=== PATIENT | female | born 1990 | race Caucasian/White ===

== ENCOUNTER → 2022-12-15 16:49 | Outpatient (CLI) | payer OTHER, MEDICAID, SELFPAY ==
[2022-12-15 17:39] LABS: HEMOLYSIS < 15 (0-50)
[2022-12-15 17:42] LABS: Add Manual Diff / Slide Review NO; Basophils Absolute Auto 100 /uL (0-100); Eosinophils Absolute Auto 200 /uL (0-450); Eosinophils Percent Auto 2.5 % (2-4); Hematocrit 40.4 % (36-46); Hemoglobin 13.5 g/dL (12.0-16.0); Lymphocytes Absolute Auto 2500 /uL (1100-4500); Mean Corpuscular HGB Conc 33.3 % (30-36); Mean Corpuscular Hemoglobin 29.8 PG (26-34); Mean Corpuscular Volume 89.4 fL (80-100); Monocytes Absolute Auto 400 /uL (0-900); Monocytes Percent Auto 6.1 % (3-14); Neutrophils Absolute Auto 3400 /uL (1500-7000); Neutrophils Percent Auto 52.4 % (50-75); Platelet Count 221 X10^3/uL (150-400); Red Blood Cell Count 4.52 X10^6/uL (4.0-5.2); Red Cell Distribution Width 13.3 % (11.6-14.8); White Blood Cell Count 6.5 X10^3/uL (4.5-11.0)
[2022-12-15 17:43] LABS: Alanine Aminotransferase 19 IU/L (<35); Albumin 4.6 g/dL (3.5-5.0); Albumin Globulin Ratio 1.4 (1.0-2.8); Alkaline Phosphatase 52 U/L (38-126); Aspartate Aminotransferase 24 IU/L (14-36); BUN Creatinine Ratio 25.9 (6-22); Bilirubin Total 0.3 mg/dL (0.2-1.3); Blood Urea Nitrogen 14 mg/dL (7-17); Calcium 8.8 mg/dL (8.4-10.2); Carbon Dioxide 27 mmol/L (22-32); Chloride 98 mmol/L (98-107); Estimated Glomerular Filt Rate > 60 mL/min (>60); Globulin 3.2 g/dL (1.7-4.1); Glucose 106 mg/dL (70-100); Potassium 3.4 mmol/L (3.4-5.1); Sodium 139 mmol/L (137-145); Total Protein 7.8 g/dL (6.3-8.2)
[2022-12-15 18:15] LABS: TSH w/ Reflex to FT4 0.71 uIU/mL (0.47-4.68)
[2022-12-15 18:20] LABS: Ferritin 23 ng/mL (6-137)
[2022-12-15 20:20] LABS: Vitamin B12 290 pg/mL (239-931)
== END ==
PROVIDERS: PCP Family Medicine; Referring Provider Family Medicine; Visit Provider Family Medicine
DX: Z00.00 Encounter for general adult medical examination without abnormal findings (principal); D64.9 Anemia, unspecified; F32.A Depression, unspecified; R53.83 Other fatigue
CPT/HCPCS: 36415; 80053; 82607; 82728; 84443; 85025

== ENCOUNTER 2024-03-19 09:45 | Outpatient (RCR) | payer OTHER, MEDICAID, SELFPAY ==
--- NOTE | 2024-01-11 15:40 | PT.OIE ---
Current Diagnoses Scoliosis, unspecified (01/11/24) Dorsalgia, unspecified (01/11/24) Abnormal posture (01/11/24) Weakness (01/11/24) Past Medical History (Last Updated 01/29/23 @ 16:39 by Perez Martinez DO) Depression Visit Care Team Role Provider Type Perez Martinez DO Family Provider Physician Primary Care Provider Specialty: Family Practice Address: [address] [place] [address], [address], [address] Email: [email or web address] Attending Provider Advanced Operations Research Director Referring Provider Specialty: Medical Wound Care Address: [address] [place] [address], [id number] Email: [email or web address] Physical Therapy Initial Evaluation PT-OP-A Visit Information Start: 01/11/24 07:25 Freq: Status: Active Protocol: Document 01/11/24 13:00 NM (Rec: 01/11/24 13:48 NM [id number]) Out-Patient Physical Therapy Visit Information Visit Information Visit Type Initial Evaluation Visit Note 12 visits MAX Visit Start Time 13:00 Visit Stop Time 13:45 Visit Number 1 Evaluation Information Evaluation Date 01/11/24 Precautions Precautions scoliosis PT-OP-B Current Condition Start: 01/11/24 07:25 Freq: Status: Active Protocol: Document 01/11/24 13:00 NM (Rec: 01/11/24 13:48 NM [id number]) Current Condition History of Current Condition Onset Date 1 month ago Current Complaints stiffness, pain History of Current Condition Pt presents with B shoulder (L >R) and back pain (mid- thoracic to lumbar). She believes it's due to sleeping in same position for several days, no other known MAKAYLA. About 1 month ago, pt went to walk in clinic due to pain, which was attributed to scoliosis.She reports that she has multiple curves in spine, hx of wearing back brace but no surgeries. No previous hx of PT or other treatment for scoliosis. 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 Does not participate in any physical activity except walking occasionally Treatment Goals Patient/Caregiver Goals decrease pain PT-OP-C Subjective Start: 01/11/24 07:25 Freq: Status: Active Protocol: Document 01/11/24 13:00 NM (Rec: 01/11/24 13:48 NM [id number]) OP-PT Subjective Patient Comments Patient Comments see hx above for pt report Patient Questionnaires Oswestry Low Back Index Oswestry Score 8/50 OP-PT Pain Assessment Pain Assessment Grid Paper Pain Assessment Grid Completed Yes Location spine Pain Location Details neck >shoulders, low back Intensity 0 Scale Used Numeric (0 - 10) Description Sharp Description- Other chart: 12/29 in scapulae, low back Frequency Frequent Radiating Location to head Pain Aggravating Factors Position,ADL's,Activity, Sitting,Walking,Bending, Lifting Other Pain Aggravating Factors sidelying, leaning/sitting, arm elevation Pain Alleviating Factors Cold,Heat,Rest Home Pain Medication Use Pain Medications Used naproxen prn PT-OP-E Functional Tests Start: 01/11/24 07:25 Freq: Status: Active Protocol: Document 01/11/24 13:00 NM (Rec: 01/11/24 17:29 NM [id number]) Functional Tests Other Forward Trunk Flexion Test Name of Test measured from finger tips to floor Score 7 PT-OP-F Manual Assessment Start: 01/11/24 07:25 Freq: Status: Active Protocol: Document 01/11/24 13:00 NM (Rec: 01/11/24 17:29 NM [id number]) Manual Assessments Soft Tissue Assessment Soft Tissue Mobility Assessment Increased tone along B paraspinals, rhomboids (L>R), suboccipitals, hip flexors (R> L), hamstrings, and R cervical spine paraspinals Joint Mobility Assessment Joint Mobility Assessment No pain with posterior- anterior springing of spinous processes, hypomobile. Scoliosis with R thoracic curve and L lumbar curve. Anteriorly rotated R ASIS. Observable hypermobility at B elbows and knees. PT-OP-G Mobility & Gait Start: 01/11/24 07:25 Freq: Status: Active Protocol: Document 01/11/24 13:00 NM (Rec: 01/11/24 17:29 NM [id number]) OP Gait Assessment Gait Gait Assistance Required: Independent Distance (Feet) 150 Assistive Devices Assistive Device None Comments Gait Comments Increased trunk stiffness, limited rotation, L limp PT-OP-J Posture/Palpation/Skin Start: 01/11/24 07:25 Freq: Status: Active Protocol: Document 01/11/24 13:00 NM (Rec: 01/11/24 13:48 NM [id number]) Posture Evaluation Position Standing T-Spine Posture Fixed Scoliosis on (R) L-Spine Posture Increased Lordosis,Flexible Scoliosis on (L) Shoulder Posture (L) Rounded,(R) Rounded,(L) Forward,(R) Forward Scapula Posture (R) Protracted,(L) Winged,(R) Winged,(R) Tipped Arm Posture (L) Internally Rotated,(R) Internally Rotated Pelvis Posture (R) Rotated Anterior,(R) Iliac Crest Superior Hip Posture (L) Neutral,(R) Neutral Knee Posture (L) Genu Valgus,(R) Genu Valgus Patellar Posture (L) Superior,(R) Superior Ankle/Foot Posture (L) Pronated,(R) Pronated Comments Posture Comments Measurement from lateral scapular border to spine: L 4 cm, R 7 cm Palpation Assessment Location spine Palpation Findings Soft Tissue Tightness, Tenderness Palpation Details Tenderness near T10 spinous process, but does not increase pain with palpation. Soft tissue tightness of B paraspinals from cervical > lumbar. PT-OP-K Range of Motion Start: 01/11/24 07:25 Freq: Status: Active Protocol: Document 01/11/24 13:00 NM (Rec: 01/11/24 17:29 NM [id number]) Cervical Spine Range of Motion Cervical Spine Active Degrees Testing Position Sitting Flexion 60 Extension 60 Rotation Left 65 Rotation Right 60 Lateral Flexion Left 40 Lateral Flexion Right 30 ROM Limitations Soft Tissue Tightness Comments Soft tissue restrictions with L rotation, R lateral flexion Lumbar Spine Range of Motion Lumbar Spine Active Percentage Flexion 60 Extension 100 Rotation Left 3 Rotation Right 3 Lateral Flexion Left 80 Lateral Flexion Right 100 ROM Limitations Soft Tissue Tightness,Pain Comments Pain reproduced with flexion, extension, R lateral flexion Shoulder Goniometric Range of Motion Shoulder Left Flexion 140 Abduction 170 External Rotation at 0 degrees Abduction 65 Internal Rotation 75 Internal Rotation Behind Back (text) T8 Comments ER Apley T4 Right Flexion 145 Abduction 160 External Rotation at 0 degrees Abduction 70 Internal Rotation 80 Internal Rotation Behind Back (text) T10 Comments ER Apley T4 Elbow/Forearm Range of Motion Elbow/Forearm ROM Limitations Comments Hypermobility Hip Goniometric Range of Motion Hip Left Flexion w/Knee Flexed 120 Abduction 20 Internal Rotation 40 External Rotation 35 Comments Hamstring 145 deg Right Flexion w/Knee Flexed 110 Abduction 20 Internal Rotation 45 External Rotation 35 Comments Hamstring 135 deg Hip ROM Limitations Hip ROM Limitations Soft Tissue Tightness,Bony Restriction Comments R ASIS more anterior Knee Goniometric Range of Motion Knee Left Flexion Active (degrees) 145 Hyper-Extension Active 5 Right Flexion Active (degrees) 145 Extension Active (degrees) 0 Ankle and Foot Goniometric Range of Motion Ankle and Foot ROM Limitations Comments Did not formally assess due to time but decreased dorsiflexion BLE PT-OP-L Special Tests Start: 01/11/24 07:25 Freq: Status: Active Protocol: Document 01/11/24 13:00 NM (Rec: 01/11/24 17:29 NM [id number]) Special Tests Lumbar Spine Special Tests Straight Leg Raise Test Results + Comments R Scruggs/Quadrant Test Results + Comments local R>L Distraction Test Results + PT-OP-M Strength Start: 01/11/24 07:25 Freq: Status: Active Protocol: Document 01/11/24 13:00 NM (Rec: 01/11/24 17:29 NM [id number]) Cervical Spine Strength Cervical Spine Manual Muscle Testing Flexion (C1-2) 4+ Good+ Extension 4+ Good+ Rotation Left 4+ Good+ Rotation Right 4+ Good+ Lateral Flexion Left (C3) 4+ Good+ Lateral Flexion Right (C3) 4+ Good+ Trunk Strength Trunk Manual Muscle Testing Flexion 3 Fair Extension 3 Fair Rotation Left 4 Good Rotation Right 4 Good Lateral Flexion Left 4 Good Lateral Flexion Right 4 Good Core Stabilization plank: 14 seconds before low back pain and demos instability Comments Minimal low back pain with R rotation Scapula Strength Scapula Manual Muscle Testing Left Elevation (C4) 4 Good Adduction 4 Good Abduction 4 Good Depression 4 Good Right Elevation (C4) 4 Good Adduction 4 Good Abduction 4 Good Depression 4 Good Shoulder Strength Shoulder Manual Muscle Testing Left Flexion 4 Good Extension 4 Good Abduction (C5) 4 Good Adduction 4 Good External Rotation 4 Good Internal Rotation 4 Good Right Flexion 4 Good Extension 4 Good Abduction (C5) 4 Good Adduction 4 Good External Rotation 4 Good Internal Rotation 4 Good Elbow/Forearm Strength Elbow and Forearm Manual Muscle Testing Left Flexion (C6) 4 Good Extension (C7) 4 Good Right Flexion (C6) 4 Good Extension (C7) 4 Good Hip Strength Hip Manual Muscle Testing Left Flexion (L2) 4- Good- Extension (S1) 4- Good- Abduction 4- Good- Adduction 4- Good- External Rotation 4 Good Internal Rotation 4 Good Right Flexion (L2) 4- Good- Extension (S1) 4- Good- Abduction 4- Good- External Rotation 4 Good Internal Rotation 4 Good Knee Strength Knee Manual Muscle Testing Left Flexion (S2) 4- Good- Extension (L3) 4- Good- Right Flexion (S2) 4- Good- Extension (L3) 4- Good- Ankle/Foot Strength Ankle and Foot Manual Muscle Testing Left Dorsiflexion (L4) 4 Good Plantarflexion (S1) 4 Good Inversion 4 Good Eversion (S1) 4 Good Right Dorsiflexion (L4) 4 Good Plantarflexion (S1) 4 Good Inversion 4 Good Eversion (S1) 4 Good PT-OP-Q Treatments Start: 01/11/24 07:25 Freq: Status: Active Protocol: Document 01/11/24 13:00 NM (Rec: 01/11/24 17:29 NM [id number]) Therapeutic Exercises Sitting Exercises cervical spine stretces Sitting Exercise Name upper trapezius, levator scapula Side bilateral Equipment Used with opposite hand tension for gentle stretch Reps/Minutes 1x30 ea Comments cued for gentle stretch, pain free Other Exercises self soft tissue mobilization Other Exercise Name suboccipital release, rhomboid mobilization Side bilateral Resistance mobilization w/ movement shldr flex/abd for rhomboid Equipment Used racquetball in pillow case Reps/Minutes 5 minute total Comments pain free PT-OP-T Assessment and Plan Start: 01/11/24 07:25 Freq: Status: Active Protocol: Document 01/11/24 13:00 NM (Rec: 01/11/24 17:29 NM [id number]) Physical Therapy Assessment Rehab Potential Rehabilitation Potential Good Evaluation Complexity Number of Personal Factors/Comorbidities 1-2 Number of Body Systems Impaired 1-2 Clinical Presentation at Evaluation Stable Impairments Impairments Activity Tolerance,Functional Activities,Functional Mobility ,Gait,Integument,Pain,Posture, ROM,Sensation,Soft Tissue Mobility,Strength Goals Five Impairment cervical spine Impairment R rotation 60 deg, L rotation 65 deg Short Term Goal (STG) Pt will increase B cervical spine rotation AROM to at least 70 deg in order to improve visual scanning and posture related to paraspinal muscle length STG Duration 6 weeks Tax Analyst Goal (LTG) Pt will increase B cervical spine rotation AROM to at least 75 deg in order to improve visual scanning and posture related to paraspinal muscle length LTG Duration 12 weeks Four Impairment strength Short Term Goal (STG) Pt will increase global BLE strength to at least 4/5 MMT in order to demonstrate improved activity tolerance STG Duration 6 weeks Assisted Goal (LTG) Pt will increase global BLE strength to at least 4+/5 MMT in order to demonstrate improved activity tolerance LTG Duration 12 weeks Three Impairment core stability Impairment plank 14 seconds Short Term Goal (STG) Pt will hold a plank (modified or full) for at least 20 seconds without signs of instability and pain <4/10 in order to demonstrate improved core stability STG Duration 6 weeks Tax Analyst Goal (LTG) Pt will hold a plank (modified or full) for at least 30 seconds without signs of instability and pain <4/10 in order to demonstrate improved core stability LTG Duration 12 weeks Two Impairment activity Impairment not performing HEP or daily exercise Short Term Goal (STG) Pt will report compliance with HEP at least 2-3x/wk in order to maximize progression made during PT sessions STG Duration 6 weeks Tax Analyst Goal (LTG) Pt will report compliance with HEP at least 3x/wk in order to transition into maintenance program upon discharge from PT LTG Duration 12 weeks One Impairment activity, function Impairment Oswestry 8/50 Tax Analyst Goal (LTG) Pt will decrease Oswestry score to <8/50 in order to demonstrate improvements in activity tolerance, pain management, and QOL LTG Duration 12 weeks Assessment Summary Assessment Pt is a 33 y.o. female presenting with cervicothoracolumbar spine pain related to scoliosis. Pt reports pain is most limiting in upper thoracic and lower cervical spine with radiation to B shoulders and occiput. Pt has a R thoracic, L lumbar curve; previously used bracing for posture correction. Pt's pain has decreased over the past month. She demonstrates hypermobility at most joints, but she does have limitations in B cervical spine, shoulder flexion and thoracolumbar spine due to scoliosis. Pt does not participate in daily activity except occasional walks. Her BUE and BLE strength is decreased for her age with limitations primarily in B hips/knees. Additionally , pt's has poor core stabilization and is only able to hold a plank for 14 seconds. PT discussed exam findings with pt and plan of care; pt verbalizes agreement. Pt has limited number of visits, so will decrease in frequency as pt progresses. Initial HEP provided to decrease paraspinal soft tissue restrictions across cervical and midthoracic spine . PT also educated pt briefly on sitting ergonomics for pain reduction and to improve postural alignment along hips/ spine. Pt would benefit from skilled PT for improved postural alignment, strengthening, and mobility in order to increase activity tolerance, decrease pain symptoms, and improve QOL. Physical Therapy Plan Frequency and Duration Frequency of Treatment 1-2x/wk Duration of treatment (weeks) 12 Plan of Care Start Date 01/11/24 Plan of Care End Date 04/04/24 Therapeutic Interventions Therapeutic Interventions Balance Training,Gait Training ,Home Exercise Program,Joint Mobilizations,Manual Therapy, Neuromuscular Re-education, Orthotic/Prosthetic Management ,Patient/Caregiver Education, Self-Care/Home Management, Sensory Integration,Soft Tissue Mobilization,Taping, Therapeutic Activities, Therapeutic Exercises Modalities Cold Pack/Ice Massage,Electric Stimulation,Hot Packs, Vasopneumatic Devices Other Therapeutic Interventions No mechanical traction Next Visit Focus/Plan Next Note Type Treatment Note Next Visit Plan MET to R ASIS, trunk elongation, hip flexor stretch Stretch: hamstring, calf, paraspinals, lats. Strengthen: hip abduction, sit to stand/ squat, scap retractions > rows , postural elongation, TrA with core Manual: scapular mobilizations , retrain scapulohumeral rhythm Provide HEP
--- NOTE | 2024-01-14 15:42 | PT.OTN ---
Current Diagnoses Scoliosis, unspecified (01/14/24) Dorsalgia, unspecified (01/14/24) Abnormal posture (01/14/24) Weakness (01/14/24) Physical Therapy Treatment Note PT-OP-A Visit Information Start: 01/11/24 07:25 Freq: Status: Active Protocol: Document 01/14/24 10:33 NM (Rec: 01/14/24 11:18 NM [id number]) Out-Patient Physical Therapy Visit Information Visit Information Visit Type Treatment Note Visit Note 12 visits MAX Visit Start Time 10:33 Visit Stop Time 11:15 Visit Number 2 Evaluation Information Evaluation Date 01/11/24 PT-OP-B Current Condition Start: 01/11/24 07:25 Freq: Status: Active Protocol: Document 01/11/24 13:00 NM (Rec: 01/11/24 13:48 NM [id number]) Current Condition History of Current Condition Onset Date 1 month ago Current Complaints stiffness, pain History of Current Condition Pt presents with B shoulder (L >R) and back pain (mid- thoracic to lumbar). She believes it's due to sleeping in same position for several days, no other known MAKAYLA. About 1 month ago, pt went to walk in clinic due to pain, which was attributed to scoliosis.She reports that she has multiple curves in spine, hx of wearing back brace but no surgeries. No previous hx of PT or other treatment for scoliosis. 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 Does not participate in any physical activity except walking occasionally Treatment Goals Patient/Caregiver Goals decrease pain PT-OP-C Subjective Start: 01/11/24 07:25 Freq: Status: Active Protocol: Document 01/14/24 10:33 NM (Rec: 01/14/24 11:18 NM [id number]) OP-PT Subjective Patient Comments Patient Comments Pt reports stiffness in shoulders and legs this morning but no pain. PT-OP-E Functional Tests Start: 01/11/24 07:25 Freq: Status: Active Protocol: Document 01/11/24 13:00 NM (Rec: 01/11/24 17:29 NM [id number]) Functional Tests Other Forward Trunk Flexion Test Name of Test measured from finger tips to floor Score 7 PT-OP-F Manual Assessment Start: 01/11/24 07:25 Freq: Status: Active Protocol: Document 01/11/24 13:00 NM (Rec: 01/11/24 17:29 NM [id number]) Manual Assessments Soft Tissue Assessment Soft Tissue Mobility Assessment Increased tone along B paraspinals, rhomboids (L>R), suboccipitals, hip flexors (R> L), hamstrings, and R cervical spine paraspinals Joint Mobility Assessment Joint Mobility Assessment No pain with posterior- anterior springing of spinous processes, hypomobile. Scoliosis with R thoracic curve and L lumbar curve. Anteriorly rotated R ASIS. Observable hypermobility at B elbows and knees. PT-OP-G Mobility & Gait Start: 01/11/24 07:25 Freq: Status: Active Protocol: Document 01/11/24 13:00 NM (Rec: 01/11/24 17:29 NM [id number]) OP Gait Assessment Gait Gait Assistance Required: Independent Distance (Feet) 150 Assistive Devices Assistive Device None Comments Gait Comments Increased trunk stiffness, limited rotation, L limp PT-OP-J Posture/Palpation/Skin Start: 01/11/24 07:25 Freq: Status: Active Protocol: Document 01/11/24 13:00 NM (Rec: 01/11/24 13:48 NM [id number]) Posture Evaluation Position Standing T-Spine Posture Fixed Scoliosis on (R) L-Spine Posture Increased Lordosis,Flexible Scoliosis on (L) Shoulder Posture (L) Rounded,(R) Rounded,(L) Forward,(R) Forward Scapula Posture (R) Protracted,(L) Winged,(R) Winged,(R) Tipped Arm Posture (L) Internally Rotated,(R) Internally Rotated Pelvis Posture (R) Rotated Anterior,(R) Iliac Crest Superior Hip Posture (L) Neutral,(R) Neutral Knee Posture (L) Genu Valgus,(R) Genu Valgus Patellar Posture (L) Superior,(R) Superior Ankle/Foot Posture (L) Pronated,(R) Pronated Comments Posture Comments Measurement from lateral scapular border to spine: L 4 cm, R 7 cm Palpation Assessment Location spine Palpation Findings Soft Tissue Tightness, Tenderness Palpation Details Tenderness near T10 spinous process, but does not increase pain with palpation. Soft tissue tightness of B paraspinals from cervical > lumbar. PT-OP-K Range of Motion Start: 01/11/24 07:25 Freq: Status: Active Protocol: Document 01/11/24 13:00 NM (Rec: 01/11/24 17:29 NM [id number]) Cervical Spine Range of Motion Cervical Spine Active Degrees Testing Position Sitting Flexion 60 Extension 60 Rotation Left 65 Rotation Right 60 Lateral Flexion Left 40 Lateral Flexion Right 30 ROM Limitations Soft Tissue Tightness Comments Soft tissue restrictions with L rotation, R lateral flexion Lumbar Spine Range of Motion Lumbar Spine Active Percentage Flexion 60 Extension 100 Rotation Left 3 Rotation Right 3 Lateral Flexion Left 80 Lateral Flexion Right 100 ROM Limitations Soft Tissue Tightness,Pain Comments Pain reproduced with flexion, extension, R lateral flexion Shoulder Goniometric Range of Motion Shoulder Left Flexion 140 Abduction 170 External Rotation at 0 degrees Abduction 65 Internal Rotation 75 Internal Rotation Behind Back (text) T8 Comments ER Apley T4 Right Flexion 145 Abduction 160 External Rotation at 0 degrees Abduction 70 Internal Rotation 80 Internal Rotation Behind Back (text) T10 Comments ER Apley T4 Elbow/Forearm Range of Motion Elbow/Forearm ROM Limitations Comments Hypermobility Hip Goniometric Range of Motion Hip Left Flexion w/Knee Flexed 120 Abduction 20 Internal Rotation 40 External Rotation 35 Comments Hamstring 145 deg Right Flexion w/Knee Flexed 110 Abduction 20 Internal Rotation 45 External Rotation 35 Comments Hamstring 135 deg Hip ROM Limitations Hip ROM Limitations Soft Tissue Tightness,Bony Restriction Comments R ASIS more anterior Knee Goniometric Range of Motion Knee Left Flexion Active (degrees) 145 Hyper-Extension Active 5 Right Flexion Active (degrees) 145 Extension Active (degrees) 0 Ankle and Foot Goniometric Range of Motion Ankle and Foot ROM Limitations Comments Did not formally assess due to time but decreased dorsiflexion BLE PT-OP-L Special Tests Start: 01/11/24 07:25 Freq: Status: Active Protocol: Document 01/11/24 13:00 NM (Rec: 01/11/24 17:29 NM [id number]) Special Tests Lumbar Spine Special Tests Straight Leg Raise Test Results + Comments R Scruggs/Quadrant Test Results + Comments local R>L Distraction Test Results + PT-OP-M Strength Start: 01/11/24 07:25 Freq: Status: Active Protocol: Document 01/11/24 13:00 NM (Rec: 01/11/24 17:29 NM [id number]) Cervical Spine Strength Cervical Spine Manual Muscle Testing Flexion (C1-2) 4+ Good+ Extension 4+ Good+ Rotation Left 4+ Good+ Rotation Right 4+ Good+ Lateral Flexion Left (C3) 4+ Good+ Lateral Flexion Right (C3) 4+ Good+ Trunk Strength Trunk Manual Muscle Testing Flexion 3 Fair Extension 3 Fair Rotation Left 4 Good Rotation Right 4 Good Lateral Flexion Left 4 Good Lateral Flexion Right 4 Good Core Stabilization plank: 14 seconds before low back pain and demos instability Comments Minimal low back pain with R rotation Scapula Strength Scapula Manual Muscle Testing Left Elevation (C4) 4 Good Adduction 4 Good Abduction 4 Good Depression 4 Good Right Elevation (C4) 4 Good Adduction 4 Good Abduction 4 Good Depression 4 Good Shoulder Strength Shoulder Manual Muscle Testing Left Flexion 4 Good Extension 4 Good Abduction (C5) 4 Good Adduction 4 Good External Rotation 4 Good Internal Rotation 4 Good Right Flexion 4 Good Extension 4 Good Abduction (C5) 4 Good Adduction 4 Good External Rotation 4 Good Internal Rotation 4 Good Elbow/Forearm Strength Elbow and Forearm Manual Muscle Testing Left Flexion (C6) 4 Good Extension (C7) 4 Good Right Flexion (C6) 4 Good Extension (C7) 4 Good Hip Strength Hip Manual Muscle Testing Left Flexion (L2) 4- Good- Extension (S1) 4- Good- Abduction 4- Good- Adduction 4- Good- External Rotation 4 Good Internal Rotation 4 Good Right Flexion (L2) 4- Good- Extension (S1) 4- Good- Abduction 4- Good- External Rotation 4 Good Internal Rotation 4 Good Knee Strength Knee Manual Muscle Testing Left Flexion (S2) 4- Good- Extension (L3) 4- Good- Right Flexion (S2) 4- Good- Extension (L3) 4- Good- Ankle/Foot Strength Ankle and Foot Manual Muscle Testing Left Dorsiflexion (L4) 4 Good Plantarflexion (S1) 4 Good Inversion 4 Good Eversion (S1) 4 Good Right Dorsiflexion (L4) 4 Good Plantarflexion (S1) 4 Good Inversion 4 Good Eversion (S1) 4 Good PT-OP-Q Treatments Start: 01/11/24 07:25 Freq: Status: Active Protocol: Document 01/14/24 10:33 NM (Rec: 01/14/24 11:18 NM [id number]) Therapeutic Exercises Supine Exercises TrA Activation Supine Exercise Name 1. breathing, 2.BKFO, 3. bridge Side bilateral Reps/Minutes 1. 1x10 with 3 hold, 2. 1x10 ea, 3. 2x8 Comments cued Draw bellybutton up/in, neutral spine with bridge; pain free posture elongation Supine Exercise Name arms overhead with breathing Side bilateral Equipment Used breathing for rib expansion Reps/Minutes 2', 1x5 with brief pause at end range Comments pain free but reports stretch at B lats Sitting Exercises scapular retractions Side bilateral Equipment Used PT facilitate even shoulders Reps/Minutes 1x10 with 3 hold Comments pain free, R more protracted, L wings cervical spine stretces Sitting Exercise Name upper trapezius, levator scapula Side bilateral Equipment Used with opposite hand tension for gentle stretch Reps/Minutes 2x30 ea Comments cued for gentle stretch, pain free Other Exercises 1/2 kneel hip flexor stretch Side bilateral Equipment Used mat on floor Reps/Minutes 1x60 Comments pain free, with ppt self soft tissue mobilization Other Exercise Name rhomboid mobilization Side bilateral Resistance mobilization w/ movement shldr flex/abd for rhomboid Equipment Used racquetball in pillow case Reps/Minutes 2' total Comments pain free Manual Therapy Treatment Soft Tissue Mobilization mid-thoracic spine Body Location B rhomboids Mobilization Type Rolling,Sustained Pressure Intensity/Depth Superficial Body Position Sidelying Comments To reduce soft tissue limitations along rhomboids, R >L, with minimal tenderness. Joint Mobilizations Rib Grade III Body Position Sitting Comments L more anterior, performed with breathing 1. mobilization: ER/elevation of ribs during breathing with P-A mobilization across ribs 4 -8, lengthening of spine, pain free but restricted, 10x5 breaths 2. mobilization into SB L with posteroinferior force, pain free but restricted, 10x5 breaths 3. contract-relax: trunk shift L, rotation with P-A mobilization at ribs on R side , 8x5 scapulothoracic Joint R shoulder Direction elev/dep, rotation upwd/dwd Grade III Body Position Sidelying Reps/Duration 1x10 ea Comments R more protracted, anterior and elevated Pain free, but decreased mobility with scapular mobilizations, performed with forward flexion and abduction in sidelying Manual Techniques Muscle Energy Technique Reps/Duration 5x10, 25% isometric force Comments R ASIS anterior: performed with dowel, R hip ext, L hip flex Supine to long sit: R anterior long> short. Still slightly anterior post, but reduced after hamstring activation Self-Care/Home Management Treatment Education Patient Education Body Mechanics,Home Exercise Program,Joint Protection, Posture Other Education 10 minutes- Education and hand outs provided regarding ergonomic sitting posture, sleeping, and desk stretches. HEP: hip flexor stretch, scapular retractions PT-OP-T Assessment and Plan Start: 01/11/24 07:25 Freq: Status: Active Protocol: Document 01/14/24 10:33 NM (Rec: 01/14/24 11:18 NM [id number]) Physical Therapy Assessment Goals Five Impairment cervical spine Impairment R rotation 60 deg, L rotation 65 deg Short Term Goal (STG) Pt will increase B cervical spine rotation AROM to at least 70 deg in order to improve visual scanning and posture related to paraspinal muscle length STG Duration 6 weeks Assisted Living Nursing Director Goal (LTG) Pt will increase B cervical spine rotation AROM to at least 75 deg in order to improve visual scanning and posture related to paraspinal muscle length LTG Duration 12 weeks Four Impairment strength Short Term Goal (STG) Pt will increase global BLE strength to at least 4/5 MMT in order to demonstrate improved activity tolerance STG Duration 6 weeks Assisted Living Nursing Director Goal (LTG) Pt will increase global BLE strength to at least 4+/5 MMT in order to demonstrate improved activity tolerance LTG Duration 12 weeks Three Impairment core stability Impairment plank 14 seconds Short Term Goal (STG) Pt will hold a plank (modified or full) for at least 20 seconds without signs of instability and pain <4/10 in order to demonstrate improved core stability STG Duration 6 weeks Assisted Living Nursing Director Goal (LTG) Pt will hold a plank (modified or full) for at least 30 seconds without signs of instability and pain <4/10 in order to demonstrate improved core stability LTG Duration 12 weeks Two Impairment activity Impairment not performing HEP or daily exercise Short Term Goal (STG) Pt will report compliance with HEP at least 2-3x/wk in order to maximize progression made during PT sessions STG Duration 6 weeks Assisted Living Nursing Director Goal (LTG) Pt will report compliance with HEP at least 3x/wk in order to transition into maintenance program upon discharge from PT LTG Duration 12 weeks One Impairment activity, function Impairment Oswestry 8/50 Assisted Living Nursing Director Goal (LTG) Pt will decrease Oswestry score to <8/50 in order to demonstrate improvements in activity tolerance, pain management, and QOL LTG Duration 12 weeks Assessment Summary Assessment Pt demos R pelvic shift and demos R hip flexor tightness. Initiated gentle spinal elongation and cervical paraspinal stretching to assist with cervical spine muscle elongation. Cued for breathing to emphasize rib expansion, elongation, and trunk mobility. Initiated gentle core activation/ stabilization and lumbar/glute strengthening with breathing. Manual treatment to limit R hip flexor tightness, improve trunk and rib positioning, and improve scapular mobility. Mobility limited by curvature of spine. 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 Since it has been several years since pt had xray, PT and pt discussed benefit of getting follow up imaging to determine if curve has progressed. Pt would benefit from skilled PT to improve posture, decrease pain symptoms, and improve trunk/ BLE/arm strength. Physical Therapy Plan Frequency and Duration Frequency of Treatment 1-2x/wk Duration of treatment (weeks) 12 Plan of Care Start Date 01/11/24 Plan of Care End Date 04/04/24 Therapeutic Interventions Therapeutic Interventions Balance Training,Gait Training ,Home Exercise Program,Joint Mobilizations,Manual Therapy, Neuromuscular Re-education, Orthotic/Prosthetic Management ,Patient/Caregiver Education, Self-Care/Home Management, Sensory Integration,Soft Tissue Mobilization,Taping, Therapeutic Activities, Therapeutic Exercises Modalities Cold Pack/Ice Massage,Electric Stimulation,Hot Packs, Vasopneumatic Devices Other Therapeutic Interventions No mechanical traction Next Visit Focus/Plan Next Note Type Treatment Note Next Visit Plan Trunk elongation, hip flexor stretch, paraspinal, trunk shift, breathing, trial: open book, periscapular mobility and strength Manual: STM, rib mobilizations /trunk mobilizations to open ribs/midthoracic, scapular mechanics, scapular MWM
--- NOTE | 2024-01-24 12:07 | PT.OTN ---
Current Diagnoses Scoliosis, unspecified (01/24/24) Dorsalgia, unspecified (01/24/24) Abnormal posture (01/24/24) Weakness (01/24/24) Physical Therapy Treatment Note PT-OP-A Visit Information Start: 01/11/24 07:25 Freq: Status: Active Protocol: Document 01/24/24 11:17 NM (Rec: 01/24/24 12:07 NM [id number]) Out-Patient Physical Therapy Visit Information Visit Information Visit Type Treatment Note Visit Note 12 visits MAX Visit Start Time 11:17 Visit Stop Time 12:00 Visit Number 4 Evaluation Information Evaluation Date 01/11/24 Precautions Precautions scoliosis PT-OP-B Current Condition Start: 01/11/24 07:25 Freq: Status: Active Protocol: Document 01/11/24 13:00 NM (Rec: 01/11/24 13:48 NM [id number]) Current Condition History of Current Condition Onset Date 1 month ago Current Complaints stiffness, pain History of Current Condition Pt presents with B shoulder (L >R) and back pain (mid- thoracic to lumbar). She believes it's due to sleeping in same position for several days, no other known MAKAYLA. About 1 month ago, pt went to walk in clinic due to pain, which was attributed to scoliosis.She reports that she has multiple curves in spine, hx of wearing back brace but no surgeries. No previous hx of PT or other treatment for scoliosis. 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 Does not participate in any physical activity except walking occasionally Treatment Goals Patient/Caregiver Goals decrease pain PT-OP-C Subjective Start: 01/11/24 07:25 Freq: Status: Active Protocol: Document 01/24/24 11:17 NM (Rec: 01/24/24 12:07 NM [id number]) OP-PT Subjective Patient Comments Patient Comments Pt reports no pain or discomfort after last session. Reports HEP 1x/day, no difficulty with HEP. PT-OP-E Functional Tests Start: 01/11/24 07:25 Freq: Status: Active Protocol: Document 01/11/24 13:00 NM (Rec: 01/11/24 17:29 NM [id number]) Functional Tests Other Forward Trunk Flexion Test Name of Test measured from finger tips to floor Score 7 PT-OP-F Manual Assessment Start: 01/11/24 07:25 Freq: Status: Active Protocol: Document 01/11/24 13:00 NM (Rec: 01/11/24 17:29 NM [id number]) Manual Assessments Soft Tissue Assessment Soft Tissue Mobility Assessment Increased tone along B paraspinals, rhomboids (L>R), suboccipitals, hip flexors (R> L), hamstrings, and R cervical spine paraspinals Joint Mobility Assessment Joint Mobility Assessment No pain with posterior- anterior springing of spinous processes, hypomobile. Scoliosis with R thoracic curve and L lumbar curve. Anteriorly rotated R ASIS. Observable hypermobility at B elbows and knees. PT-OP-G Mobility & Gait Start: 01/11/24 07:25 Freq: Status: Active Protocol: Document 01/11/24 13:00 NM (Rec: 01/11/24 17:29 NM [id number]) OP Gait Assessment Gait Gait Assistance Required: Independent Distance (Feet) 150 Assistive Devices Assistive Device None Comments Gait Comments Increased trunk stiffness, limited rotation, L limp PT-OP-J Posture/Palpation/Skin Start: 01/11/24 07:25 Freq: Status: Active Protocol: Document 01/11/24 13:00 NM (Rec: 01/11/24 13:48 NM [id number]) Posture Evaluation Position Standing T-Spine Posture Fixed Scoliosis on (R) L-Spine Posture Increased Lordosis,Flexible Scoliosis on (L) Shoulder Posture (L) Rounded,(R) Rounded,(L) Forward,(R) Forward Scapula Posture (R) Protracted,(L) Winged,(R) Winged,(R) Tipped Arm Posture (L) Internally Rotated,(R) Internally Rotated Pelvis Posture (R) Rotated Anterior,(R) Iliac Crest Superior Hip Posture (L) Neutral,(R) Neutral Knee Posture (L) Genu Valgus,(R) Genu Valgus Patellar Posture (L) Superior,(R) Superior Ankle/Foot Posture (L) Pronated,(R) Pronated Comments Posture Comments Measurement from lateral scapular border to spine: L 4 cm, R 7 cm Palpation Assessment Location spine Palpation Findings Soft Tissue Tightness, Tenderness Palpation Details Tenderness near T10 spinous process, but does not increase pain with palpation. Soft tissue tightness of B paraspinals from cervical > lumbar. PT-OP-K Range of Motion Start: 01/11/24 07:25 Freq: Status: Active Protocol: Document 01/11/24 13:00 NM (Rec: 01/11/24 17:29 NM [id number]) Cervical Spine Range of Motion Cervical Spine Active Degrees Testing Position Sitting Flexion 60 Extension 60 Rotation Left 65 Rotation Right 60 Lateral Flexion Left 40 Lateral Flexion Right 30 ROM Limitations Soft Tissue Tightness Comments Soft tissue restrictions with L rotation, R lateral flexion Lumbar Spine Range of Motion Lumbar Spine Active Percentage Flexion 60 Extension 100 Rotation Left 3 Rotation Right 3 Lateral Flexion Left 80 Lateral Flexion Right 100 ROM Limitations Soft Tissue Tightness,Pain Comments Pain reproduced with flexion, extension, R lateral flexion Shoulder Goniometric Range of Motion Shoulder Left Flexion 140 Abduction 170 External Rotation at 0 degrees Abduction 65 Internal Rotation 75 Internal Rotation Behind Back (text) T8 Comments ER Apley T4 Right Flexion 145 Abduction 160 External Rotation at 0 degrees Abduction 70 Internal Rotation 80 Internal Rotation Behind Back (text) T10 Comments ER Apley T4 Elbow/Forearm Range of Motion Elbow/Forearm ROM Limitations Comments Hypermobility Hip Goniometric Range of Motion Hip Left Flexion w/Knee Flexed 120 Abduction 20 Internal Rotation 40 External Rotation 35 Comments Hamstring 145 deg Right Flexion w/Knee Flexed 110 Abduction 20 Internal Rotation 45 External Rotation 35 Comments Hamstring 135 deg Hip ROM Limitations Hip ROM Limitations Soft Tissue Tightness,Bony Restriction Comments R ASIS more anterior Knee Goniometric Range of Motion Knee Left Flexion Active (degrees) 145 Hyper-Extension Active 5 Right Flexion Active (degrees) 145 Extension Active (degrees) 0 Ankle and Foot Goniometric Range of Motion Ankle and Foot ROM Limitations Comments Did not formally assess due to time but decreased dorsiflexion BLE PT-OP-L Special Tests Start: 01/11/24 07:25 Freq: Status: Active Protocol: Document 01/11/24 13:00 NM (Rec: 01/11/24 17:29 NM [id number]) Special Tests Lumbar Spine Special Tests Straight Leg Raise Test Results + Comments R Scruggs/Quadrant Test Results + Comments local R>L Distraction Test Results + PT-OP-M Strength Start: 01/11/24 07:25 Freq: Status: Active Protocol: Document 01/11/24 13:00 NM (Rec: 01/11/24 17:29 NM [id number]) Cervical Spine Strength Cervical Spine Manual Muscle Testing Flexion (C1-2) 4+ Good+ Extension 4+ Good+ Rotation Left 4+ Good+ Rotation Right 4+ Good+ Lateral Flexion Left (C3) 4+ Good+ Lateral Flexion Right (C3) 4+ Good+ Trunk Strength Trunk Manual Muscle Testing Flexion 3 Fair Extension 3 Fair Rotation Left 4 Good Rotation Right 4 Good Lateral Flexion Left 4 Good Lateral Flexion Right 4 Good Core Stabilization plank: 14 seconds before low back pain and demos instability Comments Minimal low back pain with R rotation Scapula Strength Scapula Manual Muscle Testing Left Elevation (C4) 4 Good Adduction 4 Good Abduction 4 Good Depression 4 Good Right Elevation (C4) 4 Good Adduction 4 Good Abduction 4 Good Depression 4 Good Shoulder Strength Shoulder Manual Muscle Testing Left Flexion 4 Good Extension 4 Good Abduction (C5) 4 Good Adduction 4 Good External Rotation 4 Good Internal Rotation 4 Good Right Flexion 4 Good Extension 4 Good Abduction (C5) 4 Good Adduction 4 Good External Rotation 4 Good Internal Rotation 4 Good Elbow/Forearm Strength Elbow and Forearm Manual Muscle Testing Left Flexion (C6) 4 Good Extension (C7) 4 Good Right Flexion (C6) 4 Good Extension (C7) 4 Good Hip Strength Hip Manual Muscle Testing Left Flexion (L2) 4- Good- Extension (S1) 4- Good- Abduction 4- Good- Adduction 4- Good- External Rotation 4 Good Internal Rotation 4 Good Right Flexion (L2) 4- Good- Extension (S1) 4- Good- Abduction 4- Good- External Rotation 4 Good Internal Rotation 4 Good Knee Strength Knee Manual Muscle Testing Left Flexion (S2) 4- Good- Extension (L3) 4- Good- Right Flexion (S2) 4- Good- Extension (L3) 4- Good- Ankle/Foot Strength Ankle and Foot Manual Muscle Testing Left Dorsiflexion (L4) 4 Good Plantarflexion (S1) 4 Good Inversion 4 Good Eversion (S1) 4 Good Right Dorsiflexion (L4) 4 Good Plantarflexion (S1) 4 Good Inversion 4 Good Eversion (S1) 4 Good PT-OP-Q Treatments Start: 01/11/24 07:25 Freq: Status: Active Protocol: Document 01/24/24 11:17 NM (Rec: 01/24/24 12:07 NM [id number]) Therapeutic Exercises Supine Exercises TrA Activation Supine Exercise Name 1. breathing, 2. bridge with hip abd Side bilateral Equipment Used tactile cue with lvl 1 band for breaths for rib exp, TrA activation Reps/Minutes 1. 1x10 with 3 hold, 2. 2x10 (reports band really helps with abd) Comments cued Draw bellybutton up/in, elongation of spine Prone Exercises ITWY Prone Exercise Name for periscapular strengthening Side bilateral Equipment Used large green sb, mat on floor Reps/Minutes 1x12 ea AROM, 1x10 with 1# wt Comments PT tactile cue for scap control initially, better w/ reps Sidelying Exercises open book stretch Sidelying Exercise Name HEP review Side bilateral Equipment Used w/ breathwork Reps/Minutes 1x10 ea side Comments cued for knee flexion; good breathwork Sitting Exercises cervical spine stretces Sitting Exercise Name upper trapezius, levator scapula Side bilateral Equipment Used w and wo opposite hand tension for gentle stretch Reps/Minutes 1x8 breath cycles ea Comments cued for gentle stretch, pain free, scap setting, tall sitting posture Standing Exercises pallof press Standing Exercise Name trialed in PT Side bilateral Resistance lvl 1 tb (both bands) Reps/Minutes 1x15 ea Comments progress next session; cued no rotation of trunk, core stability Other Exercises 1/2 kneel hip flexor stretch Side bilateral Equipment Used mat on floor Reps/Minutes 1x60 ea Comments pain free, with ppt Manual Therapy Treatment Soft Tissue Mobilization mid-thoracic spine Body Location B rhomboids, periscapulars, pec Mobilization Type Rolling,Sustained Pressure Intensity/Depth Superficial Body Position Sidelying Comments No tenderness today along B rhomboids or periscapular muscle, min tenderness at pec. Joint Mobilizations scapulothoracic Joint R shoulder Direction elev/dep, rotation upwd/dwd, protract/retract Grade III Body Position Sidelying Reps/Duration 1x10 ea Comments R more protracted, anterior and elevated Improved mobility and control of B scapulae but continues to have deficits i mobility due to posture. PROM >AAROM with functional movements, pain free Self-Care/Home Management Treatment Education Patient Education Home Exercise Program Other Education HEP: prone ITWY on new zealander ball with 1-2# db/soup can PT-OP-T Assessment and Plan Start: 01/11/24 07:25 Freq: Status: Active Protocol: Document 01/24/24 11:17 NM (Rec: 01/24/24 12:07 NM [id number]) Physical Therapy Assessment Goals Five Impairment cervical spine Impairment R rotation 60 deg, L rotation 65 deg Short Term Goal (STG) Pt will increase B cervical spine rotation AROM to at least 70 deg in order to improve visual scanning and posture related to paraspinal muscle length STG Duration 6 weeks Alf Goal (LTG) Pt will increase B cervical spine rotation AROM to at least 75 deg in order to improve visual scanning and posture related to paraspinal muscle length LTG Duration 12 weeks Four Impairment strength Short Term Goal (STG) Pt will increase global BLE strength to at least 4/5 MMT in order to demonstrate improved activity tolerance STG Duration 6 weeks Alf Goal (LTG) Pt will increase global BLE strength to at least 4+/5 MMT in order to demonstrate improved activity tolerance LTG Duration 12 weeks Three Impairment core stability Impairment plank 14 seconds Short Term Goal (STG) Pt will hold a plank (modified or full) for at least 20 seconds without signs of instability and pain <4/10 in order to demonstrate improved core stability STG Duration 6 weeks Alf Goal (LTG) Pt will hold a plank (modified or full) for at least 30 seconds without signs of instability and pain <4/10 in order to demonstrate improved core stability LTG Duration 12 weeks Two Impairment activity Impairment not performing HEP or daily exercise Short Term Goal (STG) Pt will report compliance with HEP at least 2-3x/wk in order to maximize progression made during PT sessions STG Duration 6 weeks Alf Goal (LTG) Pt will report compliance with HEP at least 3x/wk in order to transition into maintenance program upon discharge from PT LTG Duration 12 weeks One Impairment activity, function Impairment Oswestry 8/50 [employer] 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 Manual treatment to improve scapular mobility and facilitate control of B scapulae during functional UE mobility. Added level 1 band to bridges (and HEP) for increased hip abductor activation and to promote trunk/pelvic alignment. Initiated periscapular strengthening on a new zealander ball to improve scapular control; added 1#, which pt able to demonstrate good stability. Trialed pallof press for upright core stabilization and trunk elongation; requires cues to decrease trunk rotation. Pt would benefit from skilled PT for progressive periscapular strengthening, spinal stabilization and core/BLE strengthening in order to improve activity tolerance and QOL. Physical Therapy Plan Frequency and Duration Frequency of Treatment 1-2x/wk Duration of treatment (weeks) 12 Plan of Care Start Date 01/11/24 Plan of Care End Date 04/04/24 Therapeutic Interventions Therapeutic Interventions Balance Training,Gait Training ,Home Exercise Program,Joint Mobilizations,Manual Therapy, Neuromuscular Re-education, Orthotic/Prosthetic Management ,Patient/Caregiver Education, Self-Care/Home Management, Sensory Integration,Soft Tissue Mobilization,Taping, Therapeutic Activities, Therapeutic Exercises Modalities Cold Pack/Ice Massage,Electric Stimulation,Hot Packs, Vasopneumatic Devices Other Therapeutic Interventions No mechanical traction Next Visit Focus/Plan Next Note Type Treatment Note Next Visit Plan Next session: review prone IYTW, rows, shoulder ext, 1/2 kneel open book, ER+flex, Y lift off, pallof pres (add Resistance), squat with band/ hip hinge Trunk elongation, hip flexor stretch, paraspinal, trunk shift, breathing, trial: open book, periscapular mobility and strength Manual: STM, rib mobilizations /trunk mobilizations to open ribs/midthoracic, scapular mechanics, scapular MWM
--- NOTE | 2024-01-30 15:20 | PT.OTN ---
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 She believes it's due to sleeping in same position for several days, no other known MAKAYLA. About 1 month ago, pt went to walk in clinic due to pain, which was attributed to scoliosis.She reports that she has multiple curves in spine, hx of wearing back brace but no surgeries. No previous hx of PT or other treatment for scoliosis. 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 Does not participate in any physical activity except walking occasionally Treatment Goals Patient/Caregiver Goals decrease pain PT-OP-C Subjective Start: 01/11/24 07:25 Freq: Status: Active Protocol: Document 01/30/24 14:36 NBM (Rec: 01/30/24 15:19 NBM [id number]) OP-PT Subjective Patient Comments Patient Comments Maddie reports no new changes and no pain. She wants to review using the weights with the ball. She's using soup cans. PT-OP-E Functional Tests Start: 01/11/24 07:25 Freq: Status: Active Protocol: Document 01/11/24 13:00 NM (Rec: 01/11/24 17:29 NM [id number]) Functional Tests Other Forward Trunk Flexion Test Name of Test measured from finger tips to floor Score 7 PT-OP-F Manual Assessment Start: 01/11/24 07:25 Freq: Status: Active Protocol: Document 01/11/24 13:00 NM (Rec: 01/11/24 17:29 NM [id number]) Manual Assessments Soft Tissue Assessment Soft Tissue Mobility Assessment Increased tone along B paraspinals, rhomboids (L>R), suboccipitals, hip flexors (R> L), hamstrings, and R cervical spine paraspinals Joint Mobility Assessment Joint Mobility Assessment No pain with posterior- anterior springing of spinous processes, hypomobile. Scoliosis with R thoracic curve and L lumbar curve. Anteriorly rotated R ASIS. Observable hypermobility at B elbows and knees. PT-OP-G Mobility & Gait Start: 01/11/24 07:25 Freq: Status: Active Protocol: Document 01/11/24 13:00 NM (Rec: 01/11/24 17:29 NM [id number]) OP Gait Assessment Gait Gait Assistance Required: Independent Distance (Feet) 150 Assistive Devices Assistive Device None Comments Gait Comments Increased trunk stiffness, limited rotation, L limp PT-OP-J Posture/Palpation/Skin Start: 01/11/24 07:25 Freq: Status: Active Protocol: Document 01/11/24 13:00 NM (Rec: 01/11/24 13:48 NM [id number]) Posture Evaluation Position Standing T-Spine Posture Fixed Scoliosis on (R) L-Spine Posture Increased Lordosis,Flexible Scoliosis on (L) Shoulder Posture (L) Rounded,(R) Rounded,(L) Forward,(R) Forward Scapula Posture (R) Protracted,(L) Winged,(R) Winged,(R) Tipped Arm Posture (L) Internally Rotated,(R) Internally Rotated Pelvis Posture (R) Rotated Anterior,(R) Iliac Crest Superior Hip Posture (L) Neutral,(R) Neutral Knee Posture (L) Genu Valgus,(R) Genu Valgus Patellar Posture (L) Superior,(R) Superior Ankle/Foot Posture (L) Pronated,(R) Pronated Comments Posture Comments Measurement from lateral scapular border to spine: L 4 cm, R 7 cm Palpation Assessment Location spine Palpation Findings Soft Tissue Tightness, Tenderness Palpation Details Tenderness near T10 spinous process, but does not increase pain with palpation. Soft tissue tightness of B paraspinals from cervical > lumbar. PT-OP-K Range of Motion Start: 01/11/24 07:25 Freq: Status: Active Protocol: Document 01/11/24 13:00 NM (Rec: 01/11/24 17:29 NM [id number]) Cervical Spine Range of Motion Cervical Spine Active Degrees Testing Position Sitting Flexion 60 Extension 60 Rotation Left 65 Rotation Right 60 Lateral Flexion Left 40 Lateral Flexion Right 30 ROM Limitations Soft Tissue Tightness Comments Soft tissue restrictions with L rotation, R lateral flexion Lumbar Spine Range of Motion Lumbar Spine Active Percentage Flexion 60 Extension 100 Rotation Left 3 Rotation Right 3 Lateral Flexion Left 80 Lateral Flexion Right 100 ROM Limitations Soft Tissue Tightness,Pain Comments Pain reproduced with flexion, extension, R lateral flexion Shoulder Goniometric Range of Motion Shoulder Left Flexion 140 Abduction 170 External Rotation at 0 degrees Abduction 65 Internal Rotation 75 Internal Rotation Behind Back (text) T8 Comments ER Apley T4 Right Flexion 145 Abduction 160 External Rotation at 0 degrees Abduction 70 Internal Rotation 80 Internal Rotation Behind Back (text) T10 Comments ER Apley T4 Elbow/Forearm Range of Motion Elbow/Forearm ROM Limitations Comments Hypermobility Hip Goniometric Range of Motion Hip Left Flexion w/Knee Flexed 120 Abduction 20 Internal Rotation 40 External Rotation 35 Comments Hamstring 145 deg Right Flexion w/Knee Flexed 110 Abduction 20 Internal Rotation 45 External Rotation 35 Comments Hamstring 135 deg Hip ROM Limitations Hip ROM Limitations Soft Tissue Tightness,Bony Restriction Comments R ASIS more anterior Knee Goniometric Range of Motion Knee Left Flexion Active (degrees) 145 Hyper-Extension Active 5 Right Flexion Active (degrees) 145 Extension Active (degrees) 0 Ankle and Foot Goniometric Range of Motion Ankle and Foot ROM Limitations Comments Did not formally assess due to time but decreased dorsiflexion BLE PT-OP-L Special Tests Start: 01/11/24 07:25 Freq: Status: Active Protocol: Document 01/11/24 13:00 NM (Rec: 01/11/24 17:29 NM [id number]) Special Tests Lumbar Spine Special Tests Straight Leg Raise Test Results + Comments R Scruggs/Quadrant Test Results + Comments local R>L Distraction Test Results + PT-OP-M Strength Start: 01/11/24 07:25 Freq: Status: Active Protocol: Document 01/11/24 13:00 NM (Rec: 01/11/24 17:29 NM [id number]) Cervical Spine Strength Cervical Spine Manual Muscle Testing Flexion (C1-2) 4+ Good+ Extension 4+ Good+ Rotation Left 4+ Good+ Rotation Right 4+ Good+ Lateral Flexion Left (C3) 4+ Good+ Lateral Flexion Right (C3) 4+ Good+ Trunk Strength Trunk Manual Muscle Testing Flexion 3 Fair Extension 3 Fair Rotation Left 4 Good Rotation Right 4 Good Lateral Flexion Left 4 Good Lateral Flexion Right 4 Good Core Stabilization plank: 14 seconds before low back pain and demos instability Comments Minimal low back pain with R rotation Scapula Strength Scapula Manual Muscle Testing Left Elevation (C4) 4 Good Adduction 4 Good Abduction 4 Good Depression 4 Good Right Elevation (C4) 4 Good Adduction 4 Good Abduction 4 Good Depression 4 Good Shoulder Strength Shoulder Manual Muscle Testing Left Flexion 4 Good Extension 4 Good Abduction (C5) 4 Good Adduction 4 Good External Rotation 4 Good Internal Rotation 4 Good Right Flexion 4 Good Extension 4 Good Abduction (C5) 4 Good Adduction 4 Good External Rotation 4 Good Internal Rotation 4 Good Elbow/Forearm Strength Elbow and Forearm Manual Muscle Testing Left Flexion (C6) 4 Good Extension (C7) 4 Good Right Flexion (C6) 4 Good Extension (C7) 4 Good Hip Strength Hip Manual Muscle Testing Left Flexion (L2) 4- Good- Extension (S1) 4- Good- Abduction 4- Good- Adduction 4- Good- External Rotation 4 Good Internal Rotation 4 Good Right Flexion (L2) 4- Good- Extension (S1) 4- Good- Abduction 4- Good- External Rotation 4 Good Internal Rotation 4 Good Knee Strength Knee Manual Muscle Testing Left Flexion (S2) 4- Good- Extension (L3) 4- Good- Right Flexion (S2) 4- Good- Extension (L3) 4- Good- Ankle/Foot Strength Ankle and Foot Manual Muscle Testing Left Dorsiflexion (L4) 4 Good Plantarflexion (S1) 4 Good Inversion 4 Good Eversion (S1) 4 Good Right Dorsiflexion (L4) 4 Good Plantarflexion (S1) 4 Good Inversion 4 Good Eversion (S1) 4 Good PT-OP-Q Treatments Start: 01/11/24 07:25 Freq: Status: Active Protocol: Document 01/30/24 14:36 NBM (Rec: 01/30/24 15:19 NB [id number]) Therapeutic Exercises Supine Exercises TrA Activation Supine Exercise Name 1. breathing, 2. bridge with hip abd Side bilateral Equipment Used tactile cue with lvl 1 band above knees, TrA activation Reps/Minutes 1. 1x10 with 3 hold, 2. 2x10 (reports band really helps with abd) Comments cued Draw bellybutton up/in, elongation of spine Prone Exercises ITWY Prone Exercise Name for periscapular strengthening Side bilateral Equipment Used large green sb, mat on floor Reps/Minutes 1x10 with 1# wt Comments tactile cue for scap control and chin tuck initially, better w/ reps Sidelying Exercises open book stretch Sidelying Exercise Name HEP review Side bilateral Equipment Used w/ breathwork Reps/Minutes 1x10 ea side, x10 x2 breath cycle hold Comments cued for knee flexion, neutral c-sp; good breathwork Sitting Exercises scapular retractions Sitting Exercise Name HEP review Side bilateral Equipment Used seated today on 65cm green physioball Reps/Minutes 1x10 w 2 breathcycle hold Comments pain free, R more protracted, L wings, cues for UT overactivation Standing Exercises pallof press Side bilateral Resistance lvl 1 tb (both bands) Reps/Minutes x5 breath hold, 1x8 Paloff punch ea Comments good challenge, cued breath, no rotation of trunk, core stability Other Exercises 1/2 kneel hip flexor stretch Side bilateral Equipment Used mat on floor Reps/Minutes 1x60 ea, x30s ea todd w/ arm overhead Comments pain free, with ppt PT-OP-T Assessment and Plan Start: 01/11/24 07:25 Freq: Status: Active Protocol: Document 01/30/24 14:36 [facility] (Rec: 01/30/24 15:19 [facility] [id number]) Physical Therapy Assessment Goals Five Impairment cervical spine Impairment R rotation 60 deg, L rotation 65 deg Short Term Goal (STG) Pt will increase B cervical spine rotation AROM to at least 70 deg in order to improve visual scanning and posture related to paraspinal muscle length STG Duration 6 weeks Surg Physician Asst Goal (LTG) Pt will increase B cervical spine rotation AROM to at least 75 deg in order to improve visual scanning and posture related to paraspinal muscle length LTG Duration 12 weeks Four Impairment strength Short Term Goal (STG) Pt will increase global BLE strength to at least 4/5 MMT in order to demonstrate improved activity tolerance STG Duration 6 weeks Senior Living Goal (LTG) Pt will increase global BLE strength to at least 4+/5 MMT in order to demonstrate improved activity tolerance LTG Duration 12 weeks Three Impairment core stability Impairment plank 14 seconds Short Term Goal (STG) Pt will hold a plank (modified or full) for at least 20 seconds without signs of instability and pain <4/10 in order to demonstrate improved core stability STG Duration 6 weeks Surg Physician Asst Goal (LTG) Pt will hold a plank (modified or full) for at least 30 seconds without signs of instability and pain <4/10 in order to demonstrate improved core stability LTG Duration 12 weeks Two Impairment activity Impairment not performing HEP or daily exercise Short Term Goal (STG) Pt will report compliance with HEP at least 2-3x/wk in order to maximize progression made during PT sessions STG Duration 6 weeks Surg Physician Asst Goal (LTG) Pt will report compliance with HEP at least 3x/wk in order to transition into maintenance program upon discharge from PT LTG Duration 12 weeks One Impairment activity, function Impairment Oswestry 8/50 Senior Living Goal (LTG) Pt will decrease Oswestry score to <8/50 in order to demonstrate improvements in activity tolerance, pain management, and QOL LTG Duration 12 weeks Assessment Summary Assessment Treatment focus on HEP review and periscapular strengthening progression. Maddie requires consistent cues for cervical spine alignment with prone and sidelying ex's but demonstrates improved self- awareness w/ repetition. She demonstrates improved TrA activation w/ bridging needing minimal cueing and scapular retractions seated on physioball today. Pt tolerates Paloff press progression from hold to Pallof punch w/ fatigue 8-10 reps and cues for full elbow extension. She tolerates full session wtih no reports of pain. Physical Therapy Plan Frequency and Duration Frequency of Treatment 1-2x/wk Duration of treatment (weeks) 12 Plan of Care Start Date 01/11/24 Plan of Care End Date 04/04/24 Therapeutic Interventions Therapeutic Interventions Balance Training,Gait Training ,Home Exercise Program,Joint Mobilizations,Manual Therapy, Neuromuscular Re-education, Orthotic/Prosthetic Management ,Patient/Caregiver Education, Self-Care/Home Management, Sensory Integration,Soft Tissue Mobilization,Taping, Therapeutic Activities, Therapeutic Exercises Modalities Cold Pack/Ice Massage,Electric Stimulation,Hot Packs, Vasopneumatic Devices Other Therapeutic Interventions No mechanical traction Next Visit Focus/Plan Next Note Type Treatment Note Next Visit Plan Next session: review prone IYTW, rows, shoulder ext, 1/2 kneel open book, ER+flex, Y lift off, pallof pres (add Resistance), squat with band/ hip hinge Trunk elongation, hip flexor stretch, paraspinal, trunk shift, breathing, trial: open book, periscapular mobility and strength Manual: STM, rib mobilizations /trunk mobilizations to open ribs/midthoracic, scapular mechanics, scapular MWM
--- NOTE | 2024-02-08 10:31 | PT.OTN ---
Current Diagnoses Scoliosis, unspecified (02/08/24) Dorsalgia, unspecified (02/08/24) Abnormal posture (02/08/24) Weakness (02/08/24) Physical Therapy Treatment Note PT-OP-A Visit Information Start: 01/11/24 07:25 Freq: Status: Active Protocol: Document 02/08/24 09:43 NBM (Rec: 02/08/24 10:31 NB [id number]) Out-Patient Physical Therapy Visit Information Visit Information Visit Type Treatment Note Visit Note 12 visits MAX Visit Start Time 09:46 Visit Stop Time 10:30 Visit Number 6 Number of CHAPLAINCY Visits 2 Evaluation Information Evaluation Date 01/11/24 Precautions Precautions scoliosis PT-OP-B Current Condition Start: 01/11/24 07:25 Freq: Status: Active Protocol: Document 01/11/24 13:00 NM (Rec: 01/11/24 13:48 NM [id number]) Current Condition History of Current Condition Onset Date 1 month ago Current Complaints stiffness, pain History of Current Condition Pt presents with B shoulder (L >R) and back pain (mid- thoracic to lumbar). She believes it's due to sleeping in same position for several days, no other known MAKAYLA. About 1 month ago, pt went to walk in clinic due to pain, which was attributed to scoliosis.She reports that she has multiple curves in spine, hx of wearing back brace but no surgeries. No previous hx of PT or other treatment for scoliosis. 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 Does not participate in any physical activity except walking occasionally Treatment Goals Patient/Caregiver Goals decrease pain PT-OP-C Subjective Start: 01/11/24 07:25 Freq: Status: Active Protocol: Document 02/08/24 09:43 NBM (Rec: 02/08/24 10:31 NBM [id number]) OP-PT Subjective Patient Comments Patient Comments Maddie reports no pain. She wants to review ex's with bands. PT-OP-E Functional Tests Start: 01/11/24 07:25 Freq: Status: Active Protocol: Document 01/11/24 13:00 NM (Rec: 01/11/24 17:29 NM [id number]) Functional Tests Other Forward Trunk Flexion Test Name of Test measured from finger tips to floor Score 7 PT-OP-F Manual Assessment Start: 01/11/24 07:25 Freq: Status: Active Protocol: Document 01/11/24 13:00 NM (Rec: 01/11/24 17:29 NM [id number]) Manual Assessments Soft Tissue Assessment Soft Tissue Mobility Assessment Increased tone along B paraspinals, rhomboids (L>R), suboccipitals, hip flexors (R> L), hamstrings, and R cervical spine paraspinals Joint Mobility Assessment Joint Mobility Assessment No pain with posterior- anterior springing of spinous processes, hypomobile. Scoliosis with R thoracic curve and L lumbar curve. Anteriorly rotated R ASIS. Observable hypermobility at B elbows and knees. PT-OP-G Mobility & Gait Start: 01/11/24 07:25 Freq: Status: Active Protocol: Document 01/11/24 13:00 NM (Rec: 01/11/24 17:29 NM [id number]) OP Gait Assessment Gait Gait Assistance Required: Independent Distance (Feet) 150 Assistive Devices Assistive Device None Comments Gait Comments Increased trunk stiffness, limited rotation, L limp PT-OP-J Posture/Palpation/Skin Start: 01/11/24 07:25 Freq: Status: Active Protocol: Document 01/11/24 13:00 NM (Rec: 01/11/24 13:48 NM [id number]) Posture Evaluation Position Standing T-Spine Posture Fixed Scoliosis on (R) L-Spine Posture Increased Lordosis,Flexible Scoliosis on (L) Shoulder Posture (L) Rounded,(R) Rounded,(L) Forward,(R) Forward Scapula Posture (R) Protracted,(L) Winged,(R) Winged,(R) Tipped Arm Posture (L) Internally Rotated,(R) Internally Rotated Pelvis Posture (R) Rotated Anterior,(R) Iliac Crest Superior Hip Posture (L) Neutral,(R) Neutral Knee Posture (L) Genu Valgus,(R) Genu Valgus Patellar Posture (L) Superior,(R) Superior Ankle/Foot Posture (L) Pronated,(R) Pronated Comments Posture Comments Measurement from lateral scapular border to spine: L 4 cm, R 7 cm Palpation Assessment Location spine Palpation Findings Soft Tissue Tightness, Tenderness Palpation Details Tenderness near T10 spinous process, but does not increase pain with palpation. Soft tissue tightness of B paraspinals from cervical > lumbar. PT-OP-K Range of Motion Start: 01/11/24 07:25 Freq: Status: Active Protocol: Document 01/11/24 13:00 NM (Rec: 01/11/24 17:29 NM [id number]) Cervical Spine Range of Motion Cervical Spine Active Degrees Testing Position Sitting Flexion 60 Extension 60 Rotation Left 65 Rotation Right 60 Lateral Flexion Left 40 Lateral Flexion Right 30 ROM Limitations Soft Tissue Tightness Comments Soft tissue restrictions with L rotation, R lateral flexion Lumbar Spine Range of Motion Lumbar Spine Active Percentage Flexion 60 Extension 100 Rotation Left 3 Rotation Right 3 Lateral Flexion Left 80 Lateral Flexion Right 100 ROM Limitations Soft Tissue Tightness,Pain Comments Pain reproduced with flexion, extension, R lateral flexion Shoulder Goniometric Range of Motion Shoulder Left Flexion 140 Abduction 170 External Rotation at 0 degrees Abduction 65 Internal Rotation 75 Internal Rotation Behind Back (text) T8 Comments ER Apley T4 Right Flexion 145 Abduction 160 External Rotation at 0 degrees Abduction 70 Internal Rotation 80 Internal Rotation Behind Back (text) T10 Comments ER Apley T4 Elbow/Forearm Range of Motion Elbow/Forearm ROM Limitations Comments Hypermobility Hip Goniometric Range of Motion Hip Left Flexion w/Knee Flexed 120 Abduction 20 Internal Rotation 40 External Rotation 35 Comments Hamstring 145 deg Right Flexion w/Knee Flexed 110 Abduction 20 Internal Rotation 45 External Rotation 35 Comments Hamstring 135 deg Hip ROM Limitations Hip ROM Limitations Soft Tissue Tightness,Bony Restriction Comments R ASIS more anterior Knee Goniometric Range of Motion Knee Left Flexion Active (degrees) 145 Hyper-Extension Active 5 Right Flexion Active (degrees) 145 Extension Active (degrees) 0 Ankle and Foot Goniometric Range of Motion Ankle and Foot ROM Limitations Comments Did not formally assess due to time but decreased dorsiflexion BLE PT-OP-L Special Tests Start: 01/11/24 07:25 Freq: Status: Active Protocol: Document 01/11/24 13:00 NM (Rec: 01/11/24 17:29 NM [id number]) Special Tests Lumbar Spine Special Tests Straight Leg Raise Test Results + Comments R Scruggs/Quadrant Test Results + Comments local R>L Distraction Test Results + PT-OP-M Strength Start: 01/11/24 07:25 Freq: Status: Active Protocol: Document 01/11/24 13:00 NM (Rec: 01/11/24 17:29 NM [id number]) Cervical Spine Strength Cervical Spine Manual Muscle Testing Flexion (C1-2) 4+ Good+ Extension 4+ Good+ Rotation Left 4+ Good+ Rotation Right 4+ Good+ Lateral Flexion Left (C3) 4+ Good+ Lateral Flexion Right (C3) 4+ Good+ Trunk Strength Trunk Manual Muscle Testing Flexion 3 Fair Extension 3 Fair Rotation Left 4 Good Rotation Right 4 Good Lateral Flexion Left 4 Good Lateral Flexion Right 4 Good Core Stabilization plank: 14 seconds before low back pain and demos instability Comments Minimal low back pain with R rotation Scapula Strength Scapula Manual Muscle Testing Left Elevation (C4) 4 Good Adduction 4 Good Abduction 4 Good Depression 4 Good Right Elevation (C4) 4 Good Adduction 4 Good Abduction 4 Good Depression 4 Good Shoulder Strength Shoulder Manual Muscle Testing Left Flexion 4 Good Extension 4 Good Abduction (C5) 4 Good Adduction 4 Good External Rotation 4 Good Internal Rotation 4 Good Right Flexion 4 Good Extension 4 Good Abduction (C5) 4 Good Adduction 4 Good External Rotation 4 Good Internal Rotation 4 Good Elbow/Forearm Strength Elbow and Forearm Manual Muscle Testing Left Flexion (C6) 4 Good Extension (C7) 4 Good Right Flexion (C6) 4 Good Extension (C7) 4 Good Hip Strength Hip Manual Muscle Testing Left Flexion (L2) 4- Good- Extension (S1) 4- Good- Abduction 4- Good- Adduction 4- Good- External Rotation 4 Good Internal Rotation 4 Good Right Flexion (L2) 4- Good- Extension (S1) 4- Good- Abduction 4- Good- External Rotation 4 Good Internal Rotation 4 Good Knee Strength Knee Manual Muscle Testing Left Flexion (S2) 4- Good- Extension (L3) 4- Good- Right Flexion (S2) 4- Good- Extension (L3) 4- Good- Ankle/Foot Strength Ankle and Foot Manual Muscle Testing Left Dorsiflexion (L4) 4 Good Plantarflexion (S1) 4 Good Inversion 4 Good Eversion (S1) 4 Good Right Dorsiflexion (L4) 4 Good Plantarflexion (S1) 4 Good Inversion 4 Good Eversion (S1) 4 Good PT-OP-Q Treatments Start: 01/11/24 07:25 Freq: Status: Active Protocol: Document 02/08/24 09:43 [facility] (Rec: 02/08/24 10:31 [facility] [id number]) Gym Equipment Therapeutic Ball Pec stretch Ball Size/Color 65cm green ball Body Position Supine Reps/Duration 1 min Comments positive feedback response Therapeutic Exercises Supine Exercises TrA Activation Supine Exercise Name 1. breathing- not today 2. bridge with hip abd Side bilateral Equipment Used tactile cue with lvl 1 band above knees, TrA activation Reps/Minutes 2. 2x10 Comments cues for feet positionin, LE alignment Prone Exercises plank Prone Exercise Name added to HEP, forearms and toes Reps/Minutes 10s, 20s Comments challenging, initial cues for form ITWY Prone Exercise Name for periscapular strengthening Side bilateral Equipment Used large green sb, mat on floor Reps/Minutes 1x10 with 1# wt (pt declines 2 #) Comments good form and c-sp alignment Sitting Exercises scapular retractions Sitting Exercise Name HEP review Side bilateral Equipment Used seated today on 65cm green physioball Reps/Minutes 1x10 w 2 breathcycle hold Comments pain free, R more protracted, L wings cervical spine stretces Sitting Exercise Name upper trapezius, levator scapula Side bilateral Equipment Used w and wo opposite hand tension for gentle stretch Reps/Minutes 1x8 breath cycles ea Comments cued for gentle stretch, pain free, scap setting, tall sitting posture Standing Exercises pallof press Standing Exercise Name added to HEP Side bilateral Resistance lvl 1 tb (both bands) Reps/Minutes x10 Paloff punch ea Comments good challenge, no rotation of trunk, cued full elbow ext and scap setting. Other Exercises 1/2 kneel hip flexor stretch Side bilateral Equipment Used mat on floor Reps/Minutes 1x60 ea, x30s ea todd w/ arm overhead Comments pain free, with ppt PT-OP-T Assessment and Plan Start: 01/11/24 07:25 Freq: Status: Active Protocol: Document 02/08/24 09:43 [facility] (Rec: 02/08/24 10:31 [facility] [id number]) Physical Therapy Assessment Goals Five Impairment cervical spine Impairment R rotation 60 deg, L rotation 65 deg Short Term Goal (STG) Pt will increase B cervical spine rotation AROM to at least 70 deg in order to improve visual scanning and posture related to paraspinal muscle length STG Duration 6 weeks Laboratory Specialist Goal (LTG) Pt will increase B cervical spine rotation AROM to at least 75 deg in order to improve visual scanning and posture related to paraspinal muscle length LTG Duration 12 weeks Four Impairment strength Short Term Goal (STG) Pt will increase global BLE strength to at least 4/5 MMT in order to demonstrate improved activity tolerance STG Duration 6 weeks Laboratory Specialist Goal (LTG) Pt will increase global BLE strength to at least 4+/5 MMT in order to demonstrate improved activity tolerance LTG Duration 12 weeks Three Impairment core stability Impairment plank 14 seconds Short Term Goal (STG) Pt will hold a plank (modified or full) for at least 20 seconds without signs of instability and pain <4/10 in order to demonstrate improved core stability 02/08/24: Pt performed 20s w/ some shoulder pain and with instability. STG Duration 6 weeks - Progressing 02/08/24 Laboratory Specialist Goal (LTG) Pt will hold a plank (modified or full) for at least 30 seconds without signs of instability and pain <4/10 in order to demonstrate improved core stability LTG Duration 12 weeks Two Impairment activity Impairment not performing HEP or daily exercise Short Term Goal (STG) Pt will report compliance with HEP at least 2-3x/wk in order to maximize progression made during PT sessions STG Duration 6 weeks Laboratory Specialist Goal (LTG) Pt will report compliance with HEP at least 3x/wk in order to transition into maintenance program upon discharge from PT LTG Duration 12 weeks One Impairment activity, function Impairment Oswestry 8/50 Laboratory Specialist Goal (LTG) Pt will decrease Oswestry score to <8/50 in order to demonstrate improvements in activity tolerance, pain management, and QOL LTG Duration 12 weeks Assessment Summary Assessment Cindy demonstrates observably increased ROM performing prone W after pec stretching and reports decreased discomfort through chest. Pt progresses towards core stability goal of 20s plank but demonstrates instability and shoulder discomfort. Pec stretching, plank and Paloff Press added to HEP - HO given. Physical Therapy Plan Frequency and Duration Frequency of Treatment 1-2x/wk Duration of treatment (weeks) 12 Plan of Care Start Date 01/11/24 Plan of Care End Date 04/04/24 Therapeutic Interventions Therapeutic Interventions Balance Training,Gait Training ,Home Exercise Program,Joint Mobilizations,Manual Therapy, Neuromuscular Re-education, Orthotic/Prosthetic Management ,Patient/Caregiver Education, Self-Care/Home Management, Sensory Integration,Soft Tissue Mobilization,Taping, Therapeutic Activities, Therapeutic Exercises Modalities Cold Pack/Ice Massage,Electric Stimulation,Hot Packs, Vasopneumatic Devices Other Therapeutic Interventions No mechanical traction Next Visit Focus/Plan Next Note Type Treatment Note Next Visit Plan Next session: review prone IYTW, rows, shoulder ext, 1/2 kneel open book, ER+flex, Y lift off, resisted pallof pres , squat with band/hip hinge Trunk elongation, hip flexor stretch, paraspinal, trunk shift, breathing, trial: open book, periscapular mobility and strength Manual: STM, rib mobilizations /trunk mobilizations to open ribs/midthoracic, scapular mechanics, scapular MWM
--- NOTE | 2024-02-14 12:36 | PT.OTN ---
Current Diagnoses Scoliosis, unspecified (02/14/24) Dorsalgia, unspecified (02/14/24) Abnormal posture (02/14/24) Weakness (02/14/24) Physical Therapy Treatment Note PT-OP-A Visit Information Start: 01/11/24 07:25 Freq: Status: Active Protocol: Document 02/14/24 11:17 NM (Rec: 02/14/24 12:02 NM [id number]) Out-Patient Physical Therapy Visit Information Visit Information Visit Type Progress Note Visit Note 12 visits MAX Visit Start Time 11:18 Visit Stop Time 12:00 Visit Number 7 Evaluation Information Evaluation Date 01/11/24 Precautions Precautions scoliosis PT-OP-B Current Condition Start: 01/11/24 07:25 Freq: Status: Active Protocol: Document 01/11/24 13:00 NM (Rec: 01/11/24 13:48 NM [id number]) Current Condition History of Current Condition Onset Date 1 month ago Current Complaints stiffness, pain History of Current Condition Pt presents with B shoulder (L >R) and back pain (mid- thoracic to lumbar). She believes it's due to sleeping in same position for several days, no other known MAKAYLA. About 1 month ago, pt went to walk in clinic due to pain, which was attributed to scoliosis.She reports that she has multiple curves in spine, hx of wearing back brace but no surgeries. No previous hx of PT or other treatment for scoliosis. 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 Does not participate in any physical activity except walking occasionally Treatment Goals Patient/Caregiver Goals decrease pain PT-OP-C Subjective Start: 01/11/24 07:25 Freq: Status: Active Protocol: Document 02/14/24 11:17 NM (Rec: 02/14/24 12:02 NM [id number]) OP-PT Subjective Patient Comments Patient Comments Pt reports that the exercises are helpful. States no pain in back or periscapular. Sore in upper traps from sleeping in one position. PT-OP-E Functional Tests Start: 01/11/24 07:25 Freq: Status: Active Protocol: Document 01/11/24 13:00 NM (Rec: 01/11/24 17:29 NM [id number]) Functional Tests Other Forward Trunk Flexion Test Name of Test measured from finger tips to floor Score 7 PT-OP-F Manual Assessment Start: 01/11/24 07:25 Freq: Status: Active Protocol: Document 01/11/24 13:00 NM (Rec: 01/11/24 17:29 NM [id number]) Manual Assessments Soft Tissue Assessment Soft Tissue Mobility Assessment Increased tone along B paraspinals, rhomboids (L>R), suboccipitals, hip flexors (R> L), hamstrings, and R cervical spine paraspinals Joint Mobility Assessment Joint Mobility Assessment No pain with posterior- anterior springing of spinous processes, hypomobile. Scoliosis with R thoracic curve and L lumbar curve. Anteriorly rotated R ASIS. Observable hypermobility at B elbows and knees. PT-OP-G Mobility & Gait Start: 01/11/24 07:25 Freq: Status: Active Protocol: Document 01/11/24 13:00 NM (Rec: 01/11/24 17:29 NM [id number]) OP Gait Assessment Gait Gait Assistance Required: Independent Distance (Feet) 150 Assistive Devices Assistive Device None Comments Gait Comments Increased trunk stiffness, limited rotation, L limp PT-OP-J Posture/Palpation/Skin Start: 01/11/24 07:25 Freq: Status: Active Protocol: Document 01/11/24 13:00 NM (Rec: 01/11/24 13:48 NM [id number]) Posture Evaluation Position Standing T-Spine Posture Fixed Scoliosis on (R) L-Spine Posture Increased Lordosis,Flexible Scoliosis on (L) Shoulder Posture (L) Rounded,(R) Rounded,(L) Forward,(R) Forward Scapula Posture (R) Protracted,(L) Winged,(R) Winged,(R) Tipped Arm Posture (L) Internally Rotated,(R) Internally Rotated Pelvis Posture (R) Rotated Anterior,(R) Iliac Crest Superior Hip Posture (L) Neutral,(R) Neutral Knee Posture (L) Genu Valgus,(R) Genu Valgus Patellar Posture (L) Superior,(R) Superior Ankle/Foot Posture (L) Pronated,(R) Pronated Comments Posture Comments Measurement from lateral scapular border to spine: L 4 cm, R 7 cm Palpation Assessment Location spine Palpation Findings Soft Tissue Tightness, Tenderness Palpation Details Tenderness near T10 spinous process, but does not increase pain with palpation. Soft tissue tightness of B paraspinals from cervical > lumbar. PT-OP-K Range of Motion Start: 01/11/24 07:25 Freq: Status: Active Protocol: Document 02/14/24 11:17 NM (Rec: 02/14/24 12:02 NM [id number]) Cervical Spine Range of Motion Cervical Spine Active Degrees Testing Position Sitting Flexion 60 Extension 60 Rotation Left 65 Rotation Right 60 Lateral Flexion Left 40 Lateral Flexion Right 30 ROM Limitations Soft Tissue Tightness Comments Soft tissue restrictions with L rotation, R lateral flexion 02/14/24: B rotation 70 deg, pain free Lumbar Spine Range of Motion Lumbar Spine Active Percentage Flexion 60 Extension 100 Rotation Left 3 Rotation Right 3 Lateral Flexion Left 80 Lateral Flexion Right 100 ROM Limitations Soft Tissue Tightness,Pain Comments Pain reproduced with flexion, extension, R lateral flexion 02/14/24: flexion 75%, pain free PT-OP-L Special Tests Start: 01/11/24 07:25 Freq: Status: Active Protocol: Document 01/11/24 13:00 NM (Rec: 01/11/24 17:29 NM [id number]) Special Tests Lumbar Spine Special Tests Straight Leg Raise Test Results + Comments R Scruggs/Quadrant Test Results + Comments local R>L Distraction Test Results + PT-OP-M Strength Start: 01/11/24 07:25 Freq: Status: Active Protocol: Document 02/14/24 11:17 NM (Rec: 02/14/24 12:02 NM [id number]) Hip Strength Hip Manual Muscle Testing Left Flexion (L2) 4- Good- Extension (S1) 4- Good- Abduction 4- Good- Adduction 4- Good- External Rotation 4 Good Internal Rotation 4 Good Comments 02/14/24: 4/5 for all Right Flexion (L2) 4- Good- Extension (S1) 4- Good- Abduction 4- Good- External Rotation 4 Good Internal Rotation 4 Good Comments 02/14/24: 4/5 for all Knee Strength Knee Manual Muscle Testing Left Flexion (S2) 4- Good- Extension (L3) 4- Good- Comments 02/14/24: 4/5 for all Right Flexion (S2) 4- Good- Extension (L3) 4- Good- Comments 02/14/24: 4/5 for all PT-OP-Q Treatments Start: 01/11/24 07:25 Freq: Status: Active Protocol: Document 02/14/24 11:17 NM (Rec: 04/25/24 12:02 NM [id number]) Therapeutic Exercises Prone Exercises plank Prone Exercise Name 1. forearms and toes, 2. bear plank Equipment Used mat on floor Reps/Minutes 2x20 ea Comments pain free; cued for abdominal brace Sitting Exercises cervical spine stretces Sitting Exercise Name upper trapezius, levator scapula Side bilateral Equipment Used w and wo opposite hand tension for gentle stretch Reps/Minutes 1x30 Comments cued for gentle stretch, pain free, scap setting, tall sitting posture Standing Exercises lat pull down Standing Exercise Name high row Side bilateral Resistance lvl 4 band Reps/Minutes 2x10 Comments pain free rows Standing Exercise Name 1. low row, 2. mid row Side bilateral Resistance lvl 3 band> lvl 4 band Reps/Minutes 2x10 Comments good upright posture; pain free; good scap control Y lift off Side bilateral Resistance AROM Equipment Used towel roll in front of head Reps/Minutes 2x10 Comments pain free; good scap depression prior to lift, equal arm lift squats Standing Exercise Name arms across chest Side bilateral Resistance lvl 2 teal band around thighs Equipment Used from plinth (slightly elevated ) Reps/Minutes 2x12 Comments pain free; cued hip hinge, upright trunk stretching Standing Exercise Name 1. lat/trunk, 2. pectoralis 90 /90 wall Side bilateral Equipment Used 1. counter top Reps/Minutes 1x60 ea Comments pain free Manual Therapy Treatment Soft Tissue Mobilization mid-thoracic spine Body Location B rhomboids, periscapulars, UT , LS Mobilization Type Rolling,Strumming,Sustained Pressure Intensity/Depth Superficial Body Position seated Comments Increased tightness without tenderness in B paraspinals, performed rolling/strumming/ sustained pressure for increased time to promote muscle relaxation . Edu on heat after session for soft tissue relaxation and elongation Self-Care/Home Management Treatment Education Patient Education Home Exercise Program Other Education HEP: low row, mid row, high row Education on use of heat for muscle relaxation, self soft tissue mobilization if tightness PT-OP-T Assessment and Plan Start: 01/11/24 07:25 Freq: Status: Active Protocol: Document 02/14/24 11:17 NM (Rec: 02/14/24 12:02 NM [id number]) Physical Therapy Assessment Goals Five Impairment cervical spine Impairment R rotation 60 deg, L rotation 65 deg Short Term Goal (STG) Pt will increase B cervical spine rotation AROM to at least 70 deg in order to improve visual scanning and posture related to paraspinal muscle length 02/14/24: 70 deg B rotation STG Duration 6 weeks [facility] Nursing Home Goal (LTG) Pt will increase B cervical spine rotation AROM to at least 75 deg in order to improve visual scanning and posture related to paraspinal muscle length LTG Duration 12 weeks Four Impairment strength Short Term Goal (STG) Pt will increase global BLE strength to at least 4/5 MMT in order to demonstrate improved activity tolerance 02/14/24: BLE 4/5 for all, pain free STG Duration 6 weeks [facility] [employer] 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 She is progressing well towards goals. She is now able to perform a plank with good form and occasional cues for core bracing for 20 seconds without pain. Trialed bear plank for greater shoulder stabilization. Progressed periscapular strengthening to standing resistance bands; pt demos good upright posture and scapular control with activities. Initiated squats for body mechanics training and BLE strengthening; pt demos improved knee valgus and level hips with band around thighs. Cued extensively for hip hinge. Pt's flexibility improving. Educated on soft tissue mobilization and heat in order to improve soft tissue length. Physical Therapy Plan Frequency and Duration Frequency of Treatment 1-2x/wk Duration of treatment (weeks) 12 Plan of Care Start Date 01/11/24 Plan of Care End Date 04/04/24 Therapeutic Interventions Therapeutic Interventions Balance Training,Gait Training ,Home Exercise Program,Joint Mobilizations,Manual Therapy, Neuromuscular Re-education, Orthotic/Prosthetic Management ,Patient/Caregiver Education, Self-Care/Home Management, Sensory Integration,Soft Tissue Mobilization,Taping, Therapeutic Activities, Therapeutic Exercises Modalities Cold Pack/Ice Massage,Electric Stimulation,Hot Packs, Vasopneumatic Devices Other Therapeutic Interventions No mechanical traction Next Visit Focus/Plan Next Note Type Treatment Note Next Visit Plan Next session: PNF with band, 1 /2 knee rotation, progress banded rows, trial scaption, leg press, HS stretch, resisted pallof press, squat with band/hip hinge POC: Trunk elongation, hip flexor stretch, paraspinal, trunk shift, breathing, trial: open book, periscapular mobility and strength Manual: STM, rib mobilizations /trunk mobilizations to open ribs/midthoracic, scapular mechanics, scapular MWM
--- NOTE | 2024-02-20 10:34 | PT.OTN ---
Current Diagnoses Scoliosis, unspecified (02/20/24) Dorsalgia, unspecified (02/20/24) Abnormal posture (02/20/24) Weakness (02/20/24) Physical Therapy Treatment Note PT-OP-A Visit Information Start: 01/11/24 07:25 Freq: Status: Active Protocol: Document 02/20/24 09:53 NBM (Rec: 02/20/24 10:34 NB [id number]) Out-Patient Physical Therapy Visit Information Visit Information Visit Type Treatment Note Visit Note 12 visits MAX Visit Start Time 09:50 Visit Stop Time 10:30 Visit Number 8 Number of GENERAL SURGERY PHYSICIAN ASSISTANT Visits 1 Evaluation Information Evaluation Date 01/11/24 Precautions Precautions scoliosis PT-OP-B Current Condition Start: 01/11/24 07:25 Freq: Status: Active Protocol: Document 01/11/24 13:00 NM (Rec: 01/11/24 13:48 NM [id number]) Current Condition History of Current Condition Onset Date 1 month ago Current Complaints stiffness, pain History of Current Condition Pt presents with B shoulder (L >R) and back pain (mid- thoracic to lumbar). She believes it's due to sleeping in same position for several days, no other known MAKAYLA. About 1 month ago, pt went to walk in clinic due to pain, which was attributed to scoliosis.She reports that she has multiple curves in spine, hx of wearing back brace but no surgeries. No previous hx of PT or other treatment for scoliosis. 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 Does not participate in any physical activity except walking occasionally Treatment Goals Patient/Caregiver Goals decrease pain PT-OP-C Subjective Start: 01/11/24 07:25 Freq: Status: Active Protocol: Document 02/20/24 09:53 NBM (Rec: 02/20/24 10:34 NBM [id number]) OP-PT Subjective Patient Comments Patient Comments Maddie reports some L shoulder soreness after sleeping on it most of the night. She reports continueing progress overall. She used heat after last session which helped. Patient Reported Progress Improving PT-OP-E Functional Tests Start: 01/11/24 07:25 Freq: Status: Active Protocol: Document 01/11/24 13:00 NM (Rec: 01/11/24 17:29 NM [id number]) Functional Tests Other Forward Trunk Flexion Test Name of Test measured from finger tips to floor Score 7 PT-OP-F Manual Assessment Start: 01/11/24 07:25 Freq: Status: Active Protocol: Document 01/11/24 13:00 NM (Rec: 01/11/24 17:29 NM [id number]) Manual Assessments Soft Tissue Assessment Soft Tissue Mobility Assessment Increased tone along B paraspinals, rhomboids (L>R), suboccipitals, hip flexors (R> L), hamstrings, and R cervical spine paraspinals Joint Mobility Assessment Joint Mobility Assessment No pain with posterior- anterior springing of spinous processes, hypomobile. Scoliosis with R thoracic curve and L lumbar curve. Anteriorly rotated R ASIS. Observable hypermobility at B elbows and knees. PT-OP-G Mobility & Gait Start: 01/11/24 07:25 Freq: Status: Active Protocol: Document 01/11/24 13:00 NM (Rec: 01/11/24 17:29 NM [id number]) OP Gait Assessment Gait Gait Assistance Required: Independent Distance (Feet) 150 Assistive Devices Assistive Device None Comments Gait Comments Increased trunk stiffness, limited rotation, L limp PT-OP-J Posture/Palpation/Skin Start: 01/11/24 07:25 Freq: Status: Active Protocol: Document 01/11/24 13:00 NM (Rec: 01/11/24 13:48 NM [id number]) Posture Evaluation Position Standing T-Spine Posture Fixed Scoliosis on (R) L-Spine Posture Increased Lordosis,Flexible Scoliosis on (L) Shoulder Posture (L) Rounded,(R) Rounded,(L) Forward,(R) Forward Scapula Posture (R) Protracted,(L) Winged,(R) Winged,(R) Tipped Arm Posture (L) Internally Rotated,(R) Internally Rotated Pelvis Posture (R) Rotated Anterior,(R) Iliac Crest Superior Hip Posture (L) Neutral,(R) Neutral Knee Posture (L) Genu Valgus,(R) Genu Valgus Patellar Posture (L) Superior,(R) Superior Ankle/Foot Posture (L) Pronated,(R) Pronated Comments Posture Comments Measurement from lateral scapular border to spine: L 4 cm, R 7 cm Palpation Assessment Location spine Palpation Findings Soft Tissue Tightness, Tenderness Palpation Details Tenderness near T10 spinous process, but does not increase pain with palpation. Soft tissue tightness of B paraspinals from cervical > lumbar. PT-OP-K Range of Motion Start: 01/11/24 07:25 Freq: Status: Active Protocol: Document 02/14/24 11:17 NM (Rec: 02/14/24 12:02 NM [id number]) Cervical Spine Range of Motion Cervical Spine Active Degrees Testing Position Sitting Flexion 60 Extension 60 Rotation Left 65 Rotation Right 60 Lateral Flexion Left 40 Lateral Flexion Right 30 ROM Limitations Soft Tissue Tightness Comments Soft tissue restrictions with L rotation, R lateral flexion 02/14/24: B rotation 70 deg, pain free Lumbar Spine Range of Motion Lumbar Spine Active Percentage Flexion 60 Extension 100 Rotation Left 3 Rotation Right 3 Lateral Flexion Left 80 Lateral Flexion Right 100 ROM Limitations Soft Tissue Tightness,Pain Comments Pain reproduced with flexion, extension, R lateral flexion 02/14/24: flexion 75%, pain free PT-OP-L Special Tests Start: 01/11/24 07:25 Freq: Status: Active Protocol: Document 01/11/24 13:00 NM (Rec: 01/11/24 17:29 NM [id number]) Special Tests Lumbar Spine Special Tests Straight Leg Raise Test Results + Comments R Scruggs/Quadrant Test Results + Comments local R>L Distraction Test Results + PT-OP-M Strength Start: 01/11/24 07:25 Freq: Status: Active Protocol: Document 02/14/24 11:17 NM (Rec: 02/14/24 12:02 NM [id number]) Hip Strength Hip Manual Muscle Testing Left Flexion (L2) 4- Good- Extension (S1) 4- Good- Abduction 4- Good- Adduction 4- Good- External Rotation 4 Good Internal Rotation 4 Good Comments 02/14/24: 4/5 for all Right Flexion (L2) 4- Good- Extension (S1) 4- Good- Abduction 4- Good- External Rotation 4 Good Internal Rotation 4 Good Comments 02/14/24: 4/5 for all Knee Strength Knee Manual Muscle Testing Left Flexion (S2) 4- Good- Extension (L3) 4- Good- Comments 02/14/24: 4/5 for all Right Flexion (S2) 4- Good- Extension (L3) 4- Good- Comments 02/14/24: 4/5 for all PT-OP-Q Treatments Start: 03/22/24 07:25 Freq: Status: Active Protocol: Document 02/20/24 09:53 [facility] (Rec: 02/20/24 10:34 [facility] [id number]) Gym Equipment Therapeutic Ball Pec stretch Ball Size/Color 65cm green ball Body Position Supine Reps/Duration 1 min Comments positive feedback response Therapeutic Exercises Prone Exercises plank Prone Exercise Name 1. forearms and toes, 2. bear plank 3. bear plank pushup plus Equipment Used mat on floor Reps/Minutes 1.2x20 ea 2. 20s, 30s 3. x9 Comments pain free; cued for centering weightbearing ITWY Prone Exercise Name for periscapular strengthening Side bilateral Equipment Used large green sb, mat on floor Reps/Minutes 1x10 with 1# wt (pt declines 2 #) Comments occ cue for chin tuck, scap retraction to control UT overactivation w/ T&Y. Sitting Exercises cervical spine stretces Sitting Exercise Name upper trapezius, levator scapula Side bilateral Equipment Used w and wo opposite hand tension for gentle stretch Reps/Minutes 1x30 Comments tall sitting posture Standing Exercises lat pull down Standing Exercise Name high row Side bilateral Resistance lvl 4 band Reps/Minutes x12 Comments pain free, cued breath/form w/ fatigue rows Standing Exercise Name 1. low row, 2. mid row Side bilateral Resistance lvl 3 band> lvl 4 band Reps/Minutes 2x10 Comments good upright posture; pain free; good scap control Y lift off Side bilateral Resistance AROM Equipment Used towel roll in front of head Reps/Minutes 2x10 Comments pain free; good scap depression prior to lift, L>R tightness today squats Standing Exercise Name arms across chest: mini squat> chair tap on blue foam Side bilateral Resistance lvl 2 teal band around thighs Equipment Used standard mesh chair>2 blue foam Reps/Minutes 2x12 Comments pain free; cued hip hinge, chin tuck stretching Standing Exercise Name 1. lat/trunk, 2. pectoralis 90 /90 wall Side bilateral Equipment Used 1. counter top Reps/Minutes 1x60 ea Comments pain free Manual Therapy Treatment Soft Tissue Mobilization mid-thoracic spine Body Location L>R rhomboids, periscapulars, UT, LS Mobilization Type Rolling,Strumming,Sustained Pressure Intensity/Depth Superficial Body Position seated Comments L UT focus, performed rolling/ strumming/sustained pressure for increased time to promote muscle relaxation . Reminder for heat after session for soft tissue relaxation and elongation PT-OP-T Assessment and Plan Start: 01/11/24 07:25 Freq: Status: Active Protocol: Document 02/20/24 09:53 [facility] (Rec: 02/20/24 10:34 [facility] [id number]) Physical Therapy Assessment Goals Five Impairment cervical spine Impairment R rotation 60 deg, L rotation 65 deg Short Term Goal (STG) Pt will increase B cervical spine rotation AROM to at least 70 deg in order to improve visual scanning and posture related to paraspinal muscle length 02/14/24: 70 deg B rotation STG Duration 6 weeks MET Correction Goal (LTG) Pt will increase B cervical spine rotation AROM to at least 75 deg in order to improve visual scanning and posture related to paraspinal muscle length LTG Duration 12 weeks Four Impairment strength Short Term Goal (STG) Pt will increase global BLE strength to at least 4/5 MMT in order to demonstrate improved activity tolerance 02/14/24: BLE 4/5 for all, pain free STG Duration 6 weeks MET Correction Goal (LTG) Pt will increase global BLE strength to at least 4+/5 MMT in order to demonstrate improved activity tolerance LTG Duration 12 weeks Three Impairment core stability Impairment plank 14 seconds Short Term Goal (STG) Pt will hold a plank (modified or full) for at least 20 seconds without signs of instability and pain <4/10 in order to demonstrate improved core stability 02/08/24: Pt performed 20s w/ some shoulder pain and with instability. 02/14/24: 20 seconds w/o pain in shoulders, 2 reps STG Duration 6 weeks - MET 02/14/24 Correction Goal (LTG) Pt will hold a plank (modified or full) for at least 30 seconds without signs of instability and pain <4/10 in order to demonstrate improved core stability LTG Duration 12 weeks Two Impairment activity Impairment not performing HEP or daily exercise Short Term Goal (STG) Pt will report compliance with HEP at least 2-3x/wk in order to maximize progression made during PT sessions 02/14/24: every day STG Duration 6 weeks MET Hotel Engineer Goal (LTG) Pt will report compliance with HEP at least 3x/wk in order to transition into maintenance program upon discharge from PT LTG Duration 12 weeks One Impairment activity, function Impairment Oswestry 8/50 Hotel Engineer Goal (LTG) Pt will decrease Oswestry score to <8/50 in order to demonstrate improvements in activity tolerance, pain management, and QOL 02/14/24: 3/50 LTG Duration 12 weeks MET Assessment Summary Assessment Maddie demonstrates carryover with ex's but requires occasional cues for neutral cervical spine w/ chin tuck throughout session. She fatigues wtih resisted shoulder rows and requires cues for UT overactivation w/ fatigue. Palpable tension to L UT improves with manual therapy; it feels better. end of session. Physical Therapy Plan Frequency and Duration Frequency of Treatment 1-2x/wk Duration of treatment (weeks) 12 Plan of Care Start Date 01/11/24 Plan of Care End Date 04/04/24 Therapeutic Interventions Therapeutic Interventions Balance Training,Gait Training ,Home Exercise Program,Joint Mobilizations,Manual Therapy, Neuromuscular Re-education, Orthotic/Prosthetic Management ,Patient/Caregiver Education, Self-Care/Home Management, Sensory Integration,Soft Tissue Mobilization,Taping, Therapeutic Activities, Therapeutic Exercises Modalities Cold Pack/Ice Massage,Electric Stimulation,Hot Packs, Vasopneumatic Devices Other Therapeutic Interventions No mechanical traction Next Visit Focus/Plan Next Note Type Treatment Note Next Visit Plan Next session: PNF with band, 1 /2 knee rotation, progress banded rows, trial scaption, leg press, HS stretch, resisted pallof press, squat with band/hip hinge POC: Trunk elongation, hip flexor stretch, paraspinal, trunk shift, breathing, trial: open book, periscapular mobility and strength Manual: STM, rib mobilizations /trunk mobilizations to open ribs/midthoracic, scapular mechanics, scapular MWM
--- NOTE | 2024-02-27 18:43 | PT.OTN ---
Current Diagnoses Scoliosis, unspecified (02/27/24) Dorsalgia, unspecified (02/27/24) Abnormal posture (02/27/24) Weakness (02/27/24) Physical Therapy Treatment Note PT-OP-A Visit Information Start: 01/11/24 07:25 Freq: Status: Active Protocol: Document 02/27/24 09:44 NBM (Rec: 02/27/24 10:35 [facility] [id number]) Out-Patient Physical Therapy Visit Information Visit Information Visit Type Treatment Note Visit Note 12 visits MAX Visit Start Time 09:48 Visit Stop Time 10:32 Visit Number 9 Number of MUSIC EXECUTIVE Visits 2 PT-OP-B Current Condition Start: 01/11/24 07:25 Freq: Status: Active Protocol: Document 01/11/24 13:00 NM (Rec: 01/11/24 13:48 NM [id number]) Current Condition History of Current Condition Onset Date 1 month ago Current Complaints stiffness, pain History of Current Condition Pt presents with B shoulder (L >R) and back pain (mid- thoracic to lumbar). She believes it's due to sleeping in same position for several days, no other known MAKAYLA. About 1 month ago, pt went to walk in clinic due to pain, which was attributed to scoliosis.She reports that she has multiple curves in spine, hx of wearing back brace but no surgeries. No previous hx of PT or other treatment for scoliosis. 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 Does not participate in any physical activity except walking occasionally Treatment Goals Patient/Caregiver Goals decrease pain PT-OP-C Subjective Start: 01/11/24 07:25 Freq: Status: Active Protocol: Document 02/27/24 09:44 NBM (Rec: 02/27/24 10:35 NBM [id number]) OP-PT Subjective Patient Comments Patient Comments Maddie reports no pain right now. I have noticed I don't get as many headaches from my neck so that is a major improvement. Patient Reported Progress Improving PT-OP-E Functional Tests Start: 01/11/24 07:25 Freq: Status: Active Protocol: Document 01/11/24 13:00 NM (Rec: 01/11/24 17:29 NM [id number]) Functional Tests Other Forward Trunk Flexion Test Name of Test measured from finger tips to floor Score 7 PT-OP-F Manual Assessment Start: 03/22/24 07:25 Freq: Status: Active Protocol: Document 01/11/24 13:00 NM (Rec: 01/11/24 17:29 NM [id number]) Manual Assessments Soft Tissue Assessment Soft Tissue Mobility Assessment Increased tone along B paraspinals, rhomboids (L>R), suboccipitals, hip flexors (R> L), hamstrings, and R cervical spine paraspinals Joint Mobility Assessment Joint Mobility Assessment No pain with posterior- anterior springing of spinous processes, hypomobile. Scoliosis with R thoracic curve and L lumbar curve. Anteriorly rotated R ASIS. Observable hypermobility at B elbows and knees. PT-OP-G Mobility & Gait Start: 01/11/24 07:25 Freq: Status: Active Protocol: Document 01/11/24 13:00 NM (Rec: 01/11/24 17:29 NM [id number]) OP Gait Assessment Gait Gait Assistance Required: Independent Distance (Feet) 150 Assistive Devices Assistive Device None Comments Gait Comments Increased trunk stiffness, limited rotation, L limp PT-OP-J Posture/Palpation/Skin Start: 01/11/24 07:25 Freq: Status: Active Protocol: Document 01/11/24 13:00 NM (Rec: 01/11/24 13:48 NM [id number]) Posture Evaluation Position Standing T-Spine Posture Fixed Scoliosis on (R) L-Spine Posture Increased Lordosis,Flexible Scoliosis on (L) Shoulder Posture (L) Rounded,(R) Rounded,(L) Forward,(R) Forward Scapula Posture (R) Protracted,(L) Winged,(R) Winged,(R) Tipped Arm Posture (L) Internally Rotated,(R) Internally Rotated Pelvis Posture (R) Rotated Anterior,(R) Iliac Crest Superior Hip Posture (L) Neutral,(R) Neutral Knee Posture (L) Genu Valgus,(R) Genu Valgus Patellar Posture (L) Superior,(R) Superior Ankle/Foot Posture (L) Pronated,(R) Pronated Comments Posture Comments Measurement from lateral scapular border to spine: L 4 cm, R 7 cm Palpation Assessment Location spine Palpation Findings Soft Tissue Tightness, Tenderness Palpation Details Tenderness near T10 spinous process, but does not increase pain with palpation. Soft tissue tightness of B paraspinals from cervical > lumbar. PT-OP-K Range of Motion Start: 01/11/24 07:25 Freq: Status: Active Protocol: Document 02/14/24 11:17 NM (Rec: 02/14/24 12:02 NM [id number]) Cervical Spine Range of Motion Cervical Spine Active Degrees Testing Position Sitting Flexion 60 Extension 60 Rotation Left 65 Rotation Right 60 Lateral Flexion Left 40 Lateral Flexion Right 30 ROM Limitations Soft Tissue Tightness Comments Soft tissue restrictions with L rotation, R lateral flexion 02/14/24: B rotation 70 deg, pain free Lumbar Spine Range of Motion Lumbar Spine Active Percentage Flexion 60 Extension 100 Rotation Left 3 Rotation Right 3 Lateral Flexion Left 80 Lateral Flexion Right 100 ROM Limitations Soft Tissue Tightness,Pain Comments Pain reproduced with flexion, extension, R lateral flexion 02/14/24: flexion 75%, pain free PT-OP-L Special Tests Start: 01/11/24 07:25 Freq: Status: Active Protocol: Document 01/11/24 13:00 NM (Rec: 01/11/24 17:29 NM [id number]) Special Tests Lumbar Spine Special Tests Straight Leg Raise Test Results + Comments R Scruggs/Quadrant Test Results + Comments local R>L Distraction Test Results + PT-OP-M Strength Start: 01/11/24 07:25 Freq: Status: Active Protocol: Document 02/14/24 11:17 NM (Rec: 02/14/24 12:02 NM [id number]) Hip Strength Hip Manual Muscle Testing Left Flexion (L2) 4- Good- Extension (S1) 4- Good- Abduction 4- Good- Adduction 4- Good- External Rotation 4 Good Internal Rotation 4 Good Comments 02/14/24: 4/5 for all Right Flexion (L2) 4- Good- Extension (S1) 4- Good- Abduction 4- Good- External Rotation 4 Good Internal Rotation 4 Good Comments 02/14/24: 4/5 for all Knee Strength Knee Manual Muscle Testing Left Flexion (S2) 4- Good- Extension (L3) 4- Good- Comments 02/14/24: 4/5 for all Right Flexion (S2) 4- Good- Extension (L3) 4- Good- Comments 02/14/24: 4/5 for all PT-OP-Q Treatments Start: 01/11/24 07:25 Freq: Status: Active Protocol: Document 02/27/24 09:44 NBM (Rec: 02/27/24 10:35 [facility] [id number]) Therapeutic Exercises Standing Exercises rows Standing Exercise Name 1. low row, 2. mid row Side bilateral Resistance lvl 4 TB blue>lvl 5 plum Reps/Minutes 2x10 Comments good upright posture; pain free; good scap control squats Standing Exercise Name arms across chest: mini squat> chair tap on blue foam Side bilateral Resistance lvl 2 teal band around thighs Equipment Used mini squat> chair taps Reps/Minutes 2x10 Comments pain free; good initial form but cued for hip hinge w/ fatigue pallof press Standing Exercise Name HEP review Side bilateral Resistance lvl 1 tb (both bands) Reps/Minutes x10 Paloff punch ea Comments good challenge, no rotation of trunk, cued full elbow ext and scap setting. Other Exercises 1/2 knee rotation Side bilateral Equipment Used Lvl1 Tb Reps/Minutes x10 ea Comments initial cues for form 1/2 kneel hip flexor stretch Side bilateral Equipment Used mat on floor Reps/Minutes 1x60 ea Comments pain free, with ppt Neuro Re-Education Treatment Coordination Activities PNF Details UE D1/D2 Equipment Lvl 1 peach Tb (anchored at wall) Reps/Duration 2x10 ea Comments L>R challenged, with fatigue tactile cues for shoulder retraction and depression. PT-OP-R Modalities Start: 01/11/24 07:25 Freq: Status: Active Protocol: Document 02/27/24 09:44 [facility] (Rec: 02/27/24 10:35 [facility] [id number]) Hot Pack/Cold Pack Treatment Cold Pack Location L shoulder Patient Position Hooklying Patient Tolerance Good Comments blanket PT-OP-T Assessment and Plan Start: 01/11/24 07:25 Freq: Status: Active Protocol: Document 02/27/24 09:44 [facility] (Rec: 02/27/24 10:35 [facility] [id number]) Physical Therapy Assessment Goals Five Impairment cervical spine Impairment R rotation 60 deg, L rotation 65 deg Short Term Goal (STG) Pt will increase B cervical spine rotation AROM to at least 70 deg in order to improve visual scanning and posture related to paraspinal muscle length 02/14/24: 70 deg B rotation STG Duration 6 weeks MET Halfway Goal (LTG) Pt will increase B cervical spine rotation AROM to at least 75 deg in order to improve visual scanning and posture related to paraspinal muscle length LTG Duration 12 weeks Four Impairment strength Short Term Goal (STG) Pt will increase global BLE strength to at least 4/5 MMT in order to demonstrate improved activity tolerance 02/14/24: BLE 4/5 for all, pain free STG Duration 6 weeks MET Halfway Goal (LTG) Pt will increase global BLE strength to at least 4+/5 MMT in order to demonstrate improved activity tolerance LTG Duration 12 weeks Three Impairment core stability Impairment plank 14 seconds Short Term Goal (STG) Pt will hold a plank (modified or full) for at least 20 seconds without signs of instability and pain <4/10 in order to demonstrate improved core stability 02/08/24: Pt performed 20s w/ some shoulder pain and with instability. 02/14/24: 20 seconds w/o pain in shoulders, 2 reps STG Duration 6 weeks - MET 02/14/24 Band Attacher Goal (LTG) Pt will hold a plank (modified or full) for at least 30 seconds without signs of instability and pain <4/10 in order to demonstrate improved core stability 02/27/24: plank forearms/toes: 39s w/ signs of stability L shoulder pain 4/10; bear plank 30 s. LTG Duration 12 weeks Two Impairment activity Impairment not performing HEP or daily exercise Short Term Goal (STG) Pt will report compliance with HEP at least 2-3x/wk in order to maximize progression made during PT sessions 02/14/24: every day STG Duration 6 weeks MET Halfway Goal (LTG) Pt will report compliance with HEP at least 3x/wk in order to transition into maintenance program upon discharge from PT LTG Duration 12 weeks One Impairment activity, function Impairment Oswestry 8/50 Halfway Goal (LTG) Pt will decrease Oswestry score to <8/50 in order to demonstrate improvements in activity tolerance, pain management, and QOL 02/14/24: 3/50 LTG Duration 12 weeks MET Assessment Summary Assessment Maddie continues to demonstrate progress towards goals. Resisted rows progressed from Level 4 Tb> Level 5 Tb as patient demos appropriate form and challenge at Level 5. JM is challenged more than RUE w/ resisted PNF D1/D2 patterns with Level 1 Tb and she requires cues for scapular setting and UT overactivation. Discussed use of ice for pain management and pt reports pain level which increased from 0/10 to 4/10 with resisted band ex's and planks improves end of session from 01/29 to 12/01 after cryotherapy 8 min. Physical Therapy Plan Frequency and Duration Frequency of Treatment 1-2x/wk Duration of treatment (weeks) 12 Plan of Care Start Date 01/11/24 Plan of Care End Date 04/04/24 Therapeutic Interventions Therapeutic Interventions Balance Training,Gait Training ,Home Exercise Program,Joint Mobilizations,Manual Therapy, Neuromuscular Re-education, Orthotic/Prosthetic Management ,Patient/Caregiver Education, Self-Care/Home Management, Sensory Integration,Soft Tissue Mobilization,Taping, Therapeutic Activities, Therapeutic Exercises Modalities Cold Pack/Ice Massage,Electric Stimulation,Hot Packs, Vasopneumatic Devices Other Therapeutic Interventions No mechanical traction Next Visit Focus/Plan Next Note Type Treatment Note Next Visit Plan Next session: PNF with band, 1 /2 knee rotation, progress banded rows, trial scaption, leg press, HS stretch, resisted pallof press, squat with band/hip hinge POC: Trunk elongation, hip flexor stretch, paraspinal, trunk shift, breathing, trial: open book, periscapular mobility and strength Manual: STM, rib mobilizations /trunk mobilizations to open ribs/midthoracic, scapular mechanics, scapular MWM
--- NOTE | 2024-03-05 10:31 | PT.OTN ---
Current Diagnoses Scoliosis, unspecified (03/05/24) Dorsalgia, unspecified (03/05/24) Abnormal posture (03/05/24) Weakness (03/05/24) Physical Therapy Treatment Note PT-OP-A Visit Information Start: 01/11/24 07:25 Freq: Status: Active Protocol: Document 03/05/24 09:44 NM (Rec: 03/05/24 10:29 NM [id number]) Out-Patient Physical Therapy Visit Information Visit Information Visit Type Treatment Note Visit Note 12 visits MAX Visit Start Time 09:46 Visit Stop Time 10:28 Visit Number 08/02 Evaluation Information Evaluation Date 01/11/24 PT-OP-B Current Condition Start: 01/11/24 07:25 Freq: Status: Active Protocol: Document 01/11/24 13:00 NM (Rec: 01/11/24 13:48 NM [id number]) Current Condition History of Current Condition Onset Date 1 month ago Current Complaints stiffness, pain History of Current Condition Pt presents with B shoulder (L >R) and back pain (mid- thoracic to lumbar). She believes it's due to sleeping in same position for several days, no other known MAKAYLA. About 1 month ago, pt went to walk in clinic due to pain, which was attributed to scoliosis.She reports that she has multiple curves in spine, hx of wearing back brace but no surgeries. No previous hx of PT or other treatment for scoliosis. 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 Does not participate in any physical activity except walking occasionally Treatment Goals Patient/Caregiver Goals decrease pain PT-OP-C Subjective Start: 01/11/24 07:25 Freq: Status: Active Protocol: Document 03/05/24 09:44 NM (Rec: 03/05/24 10:29 NM [id number]) OP-PT Subjective Patient Comments Patient Comments Pt reports that she has no pain in her back. States exercises are going well at home; she has been trying to do them every day. She reports that she doesn't have as much shoulder pain when she gets up in the morning or after working at her desk. She is wanting to use the last two visits PT-OP-E Functional Tests Start: 01/11/24 07:25 Freq: Status: Active Protocol: Document 01/11/24 13:00 NM (Rec: 01/11/24 17:29 NM [id number]) Functional Tests Other Forward Trunk Flexion Test Name of Test measured from finger tips to floor Score 7 PT-OP-F Manual Assessment Start: 01/11/24 07:25 Freq: Status: Active Protocol: Document 01/11/24 13:00 NM (Rec: 01/11/24 17:29 NM [id number]) Manual Assessments Soft Tissue Assessment Soft Tissue Mobility Assessment Increased tone along B paraspinals, rhomboids (L>R), suboccipitals, hip flexors (R> L), hamstrings, and R cervical spine paraspinals Joint Mobility Assessment Joint Mobility Assessment No pain with posterior- anterior springing of spinous processes, hypomobile. Scoliosis with R thoracic curve and L lumbar curve. Anteriorly rotated R ASIS. Observable hypermobility at B elbows and knees. PT-OP-G Mobility & Gait Start: 01/11/24 07:25 Freq: Status: Active Protocol: Document 01/11/24 13:00 NM (Rec: 01/11/24 17:29 NM [id number]) OP Gait Assessment Gait Gait Assistance Required: Independent Distance (Feet) 150 Assistive Devices Assistive Device None Comments Gait Comments Increased trunk stiffness, limited rotation, L limp PT-OP-J Posture/Palpation/Skin Start: 01/11/24 07:25 Freq: Status: Active Protocol: Document 01/11/24 13:00 NM (Rec: 01/11/24 13:48 NM [id number]) Posture Evaluation Position Standing T-Spine Posture Fixed Scoliosis on (R) L-Spine Posture Increased Lordosis,Flexible Scoliosis on (L) Shoulder Posture (L) Rounded,(R) Rounded,(L) Forward,(R) Forward Scapula Posture (R) Protracted,(L) Winged,(R) Winged,(R) Tipped Arm Posture (L) Internally Rotated,(R) Internally Rotated Pelvis Posture (R) Rotated Anterior,(R) Iliac Crest Superior Hip Posture (L) Neutral,(R) Neutral Knee Posture (L) Genu Valgus,(R) Genu Valgus Patellar Posture (L) Superior,(R) Superior Ankle/Foot Posture (L) Pronated,(R) Pronated Comments Posture Comments Measurement from lateral scapular border to spine: L 4 cm, R 7 cm Palpation Assessment Location spine Palpation Findings Soft Tissue Tightness, Tenderness Palpation Details Tenderness near T10 spinous process, but does not increase pain with palpation. Soft tissue tightness of B paraspinals from cervical > lumbar. PT-OP-K Range of Motion Start: 01/11/24 07:25 Freq: Status: Active Protocol: Document 02/14/24 11:17 NM (Rec: 02/14/24 12:02 NM [id number]) Cervical Spine Range of Motion Cervical Spine Active Degrees Testing Position Sitting Flexion 60 Extension 60 Rotation Left 65 Rotation Right 60 Lateral Flexion Left 40 Lateral Flexion Right 30 ROM Limitations Soft Tissue Tightness Comments Soft tissue restrictions with L rotation, R lateral flexion 02/14/24: B rotation 70 deg, pain free Lumbar Spine Range of Motion Lumbar Spine Active Percentage Flexion 60 Extension 100 Rotation Left 3 Rotation Right 3 Lateral Flexion Left 80 Lateral Flexion Right 100 ROM Limitations Soft Tissue Tightness,Pain Comments Pain reproduced with flexion, extension, R lateral flexion 02/14/24: flexion 75%, pain free PT-OP-L Special Tests Start: 01/11/24 07:25 Freq: Status: Active Protocol: Document 01/11/24 13:00 NM (Rec: 01/11/24 17:29 NM [id number]) Special Tests Lumbar Spine Special Tests Straight Leg Raise Test Results + Comments R Scruggs/Quadrant Test Results + Comments local R>L Distraction Test Results + PT-OP-M Strength Start: 01/11/24 07:25 Freq: Status: Active Protocol: Document 02/14/24 11:17 NM (Rec: 02/14/24 12:02 NM [id number]) Hip Strength Hip Manual Muscle Testing Left Flexion (L2) 4- Good- Extension (S1) 4- Good- Abduction 4- Good- Adduction 4- Good- External Rotation 4 Good Internal Rotation 4 Good Comments 02/14/24: 4/5 for all Right Flexion (L2) 4- Good- Extension (S1) 4- Good- Abduction 4- Good- External Rotation 4 Good Internal Rotation 4 Good Comments 02/14/24: 4/5 for all Knee Strength Knee Manual Muscle Testing Left Flexion (S2) 4- Good- Extension (L3) 4- Good- Comments 02/14/24: 4/5 for all Right Flexion (S2) 4- Good- Extension (L3) 4- Good- Comments 4/25/24: 4/5 for all PT-OP-Q Treatments Start: 01/11/24 07:25 Freq: Status: Active Protocol: Document 03/05/24 09:44 NM (Rec: 03/05/24 10:29 NM [id number]) Therapeutic Exercises Prone Exercises child's pose Prone Exercise Name 1. with shoulder flexion stretch, 2. lateral flexion w/ o foam roller Side bilateral Equipment Used on mat, using foam roller Reps/Minutes 1. 10x5, 2. 1x30 ea Comments cued neutral spine; pain free plank Prone Exercise Name 1. full plank on forearms, 2. dolphin plank Side bilateral Equipment Used mat on floor Reps/Minutes 1. 1x30, 2. 5x10 hold Comments cued push forearms into mat, no UT comp Sitting Exercises cervical spine stretces Sitting Exercise Name 1. UT, 2. LS, 3. SCM/scalenes Side bilateral Equipment Used w/ opposite hand tension for gentle stretch Reps/Minutes 1x60 ea Comments tall sitting posture, cued for breathwork to decrease muscle tension Standing Exercises serratus anterior Standing Exercise Name serratus roll Side bilateral Resistance AROM Equipment Used foam roller against wall, slight incline of body Reps/Minutes 2x8 Comments cued parallel forearms Rotator cuff theraband Standing Exercise Name 1. wall clocks, 2. banded ER with flexion Side bilateral Resistance lvl 1 tb around forearms Equipment Used 1. at chest height, 2. back against the wall Reps/Minutes 1. 1x5 ea, 2. 2x10 Comments pain free; challenging, feels the burn as muscles work pallof press Standing Exercise Name pallof walkout with squat Side bilateral Resistance lvl 1 tb (both hands) Reps/Minutes 2 walkout ea direction w/ 10 presses (squat position) Comments no rotation, pain free Other Exercises 1/2 knee rotation Side bilateral Resistance lvl 2 tb Equipment Used mat on floor Reps/Minutes 2x10 ea Comments good open posture self soft tissue mobilization Other Exercise Name UT and LS Side bilateral Equipment Used theracane Reps/Minutes 2 minutes Comments L>R today; start of session Self-Care/Home Management Treatment Education Patient Education Home Exercise Program Other Education HEP: wall clocks, child pose fwd and lateral, pallof squat PT-OP-R Modalities Start: 01/11/24 07:25 Freq: Status: Active Protocol: Document 02/27/24 09:44 NBM (Rec: 02/27/24 10:35 NBM [id number]) Hot Pack/Cold Pack Treatment Cold Pack Location L shoulder Patient Position Hooklying Patient Tolerance Good Comments blanket PT-OP-T Assessment and Plan Start: 01/11/24 07:25 Freq: Status: Active Protocol: Document 03/05/24 09:44 NM (Rec: 03/05/24 10:29 NM [id number]) Physical Therapy Assessment Goals Five Impairment cervical spine Impairment R rotation 60 deg, L rotation 65 deg Short Term Goal (STG) Pt will increase B cervical spine rotation AROM to at least 70 deg in order to improve visual scanning and posture related to paraspinal muscle length 02/14/24: 70 deg B rotation STG Duration 6 weeks MET Longshore Equipment Operator Goal (LTG) Pt will increase B cervical spine rotation AROM to at least 75 deg in order to improve visual scanning and posture related to paraspinal muscle length 03/05/24: 80 deg R, 85 deg L LTG Duration 12 weeks MET Four Impairment strength Short Term Goal (STG) Pt will increase global BLE strength to at least 4/5 MMT in order to demonstrate improved activity tolerance 02/14/24: BLE 4/5 for all, pain free STG Duration 6 weeks MET Care Home Goal (LTG) Pt will increase global BLE strength to at least 4+/5 MMT in order to demonstrate improved activity tolerance LTG Duration 12 weeks Three Impairment core stability Impairment plank 14 seconds Short Term Goal (STG) Pt will hold a plank (modified or full) for at least 20 seconds without signs of instability and pain <4/10 in order to demonstrate improved core stability 02/08/24: Pt performed 20s w/ some shoulder pain and with instability. 02/14/24: 20 seconds w/o pain in shoulders, 2 reps STG Duration 6 weeks - MET 02/14/24 Care Home Goal (LTG) Pt will hold a plank (modified or full) for at least 30 seconds without signs of instability and pain <4/10 in order to demonstrate improved core stability 02/27/24: plank forearms/toes: 39s w/ signs of stability L shoulder pain 4/10; bear plank 30 s. 03/05/24: performed at beginning of session, pt able to hold for 30 sec w/o signs of instability and pain free LTG Duration 12 weeks MET Two Impairment activity Impairment not performing HEP or daily exercise Short Term Goal (STG) Pt will report compliance with HEP at least 2-3x/wk in order to maximize progression made during PT sessions 02/14/24: every day STG Duration 6 weeks MET Longshore Equipment Operator Goal (LTG) Pt will report compliance with HEP at least 3x/wk in order to transition into maintenance program upon discharge from PT 03/05/24: Reports performing HEP daily LTG Duration 12 weeks MET One Impairment activity, function Impairment Oswestry 8/50 Longshore Equipment Operator Goal (LTG) Pt will decrease Oswestry score to <8/50 in order to demonstrate improvements in activity tolerance, pain management, and QOL 02/14/24: 350 LTG Duration 12 weeks MET Progress Towards Goals Progress Towards Goals Goals Met Progress Comments Met cervical spine rotation and plank goal today Assessment Summary Assessment Pt tolerated session well without any pain or discomfort in midback or scapular region . She met her plank goal today and was able to perform a full plank for 30 seconds with good form and without signs of core instability. Initiated rotator cuff strengthening with wall clocks and banded ER with flexion. Pt demos good upright posture, but fatigues easily. Continued with serratus strengthening to address scapular winging and control. Pt states ready to d/ c in 2 visits. Pt would benefit from skilled PT for continued paraspinal, core, and scapular strengthening, in addition to flexibility training in order to improve symptom management. Physical Therapy Plan Frequency and Duration Frequency of Treatment 1-2x/wk Duration of treatment (weeks) 12 Plan of Care Start Date 01/11/24 Plan of Care End Date 04/04/24 Therapeutic Interventions Therapeutic Interventions Balance Training,Gait Training ,Home Exercise Program,Joint Mobilizations,Manual Therapy, Neuromuscular Re-education, Orthotic/Prosthetic Management ,Patient/Caregiver Education, Self-Care/Home Management, Sensory Integration,Soft Tissue Mobilization,Taping, Therapeutic Activities, Therapeutic Exercises Modalities Cold Pack/Ice Massage,Electric Stimulation,Hot Packs, Vasopneumatic Devices Other Therapeutic Interventions No mechanical traction Next Visit Focus/Plan Next Note Type Treatment Note Next Visit Plan Next session: wall walks, trial scaption, dolphin plank, serratus roll up, banded rotator cuff with flexion, functional core Plan to d/c in 2 visits Manual: STM, rib mobilizations /trunk mobilizations to open ribs/midthoracic, scapular mechanics, scapular MWM
--- NOTE | 2024-03-12 10:37 | PT.OTN ---
Current Diagnoses Scoliosis, unspecified (03/12/24) Dorsalgia, unspecified (03/12/24) Abnormal posture (03/12/24) Weakness (03/12/24) Physical Therapy Treatment Note PT-OP-A Visit Information Start: 01/11/24 07:25 Freq: Status: Active Protocol: Document 03/12/24 09:55 NBM (Rec: 03/12/24 10:37 NBM [id number]) Out-Patient Physical Therapy Visit Information Visit Information Visit Type Treatment Note Visit Note 12 visits MAX D/c next visit. Visit Start Time 09:52 Visit Stop Time 10:32 Visit Number 09/02 Number of OPERATIONS LABEL CLERK Visits 1 PT-OP-B Current Condition Start: 01/11/24 07:25 Freq: Status: Active Protocol: Document 01/11/24 13:00 NM (Rec: 01/11/24 13:48 NM [id number]) Current Condition History of Current Condition Onset Date 1 month ago Current Complaints stiffness, pain History of Current Condition Pt presents with B shoulder (L >R) and back pain (mid- thoracic to lumbar). She believes it's due to sleeping in same position for several days, no other known MAKAYLA. About 1 month ago, pt went to walk in clinic due to pain, which was attributed to scoliosis.She reports that she has multiple curves in spine, hx of wearing back brace but no surgeries. No previous hx of PT or other treatment for scoliosis. 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 Does not participate in any physical activity except walking occasionally Treatment Goals Patient/Caregiver Goals decrease pain PT-OP-C Subjective Start: 01/11/24 07:25 Freq: Status: Active Protocol: Document 03/12/24 09:55 NBM (Rec: 03/12/24 10:37 NBM [id number]) OP-PT Subjective Patient Comments Patient Comments Pt reports new ex's are going well. She did not sleep well because of the wind causing noise last night and is tired. Pain 2/10. PT-OP-E Functional Tests Start: 01/11/24 07:25 Freq: Status: Active Protocol: Document 01/11/24 13:00 NM (Rec: 01/11/24 17:29 NM [id number]) Functional Tests Other Forward Trunk Flexion Test Name of Test measured from finger tips to floor Score 7 PT-OP-F Manual Assessment Start: 01/11/24 07:25 Freq: Status: Active Protocol: Document 01/11/24 13:00 NM (Rec: 01/11/24 17:29 NM [id number]) Manual Assessments Soft Tissue Assessment Soft Tissue Mobility Assessment Increased tone along B paraspinals, rhomboids (L>R), suboccipitals, hip flexors (R> L), hamstrings, and R cervical spine paraspinals Joint Mobility Assessment Joint Mobility Assessment No pain with posterior- anterior springing of spinous processes, hypomobile. Scoliosis with R thoracic curve and L lumbar curve. Anteriorly rotated R ASIS. Observable hypermobility at B elbows and knees. PT-OP-G Mobility & Gait Start: 01/11/24 07:25 Freq: Status: Active Protocol: Document 01/11/24 13:00 NM (Rec: 01/11/24 17:29 NM [id number]) OP Gait Assessment Gait Gait Assistance Required: Independent Distance (Feet) 150 Assistive Devices Assistive Device None Comments Gait Comments Increased trunk stiffness, limited rotation, L limp PT-OP-J Posture/Palpation/Skin Start: 01/11/24 07:25 Freq: Status: Active Protocol: Document 01/11/24 13:00 NM (Rec: 01/11/24 13:48 NM [id number]) Posture Evaluation Position Standing T-Spine Posture Fixed Scoliosis on (R) L-Spine Posture Increased Lordosis,Flexible Scoliosis on (L) Shoulder Posture (L) Rounded,(R) Rounded,(L) Forward,(R) Forward Scapula Posture (R) Protracted,(L) Winged,(R) Winged,(R) Tipped Arm Posture (L) Internally Rotated,(R) Internally Rotated Pelvis Posture (R) Rotated Anterior,(R) Iliac Crest Superior Hip Posture (L) Neutral,(R) Neutral Knee Posture (L) Genu Valgus,(R) Genu Valgus Patellar Posture (L) Superior,(R) Superior Ankle/Foot Posture (L) Pronated,(R) Pronated Comments Posture Comments Measurement from lateral scapular border to spine: L 4 cm, R 7 cm Palpation Assessment Location spine Palpation Findings Soft Tissue Tightness, Tenderness Palpation Details Tenderness near T10 spinous process, but does not increase pain with palpation. Soft tissue tightness of B paraspinals from cervical > lumbar. PT-OP-K Range of Motion Start: 01/11/24 07:25 Freq: Status: Active Protocol: Document 02/14/24 11:17 NM (Rec: 02/14/24 12:02 NM [id number]) Cervical Spine Range of Motion Cervical Spine Active Degrees Testing Position Sitting Flexion 60 Extension 60 Rotation Left 65 Rotation Right 60 Lateral Flexion Left 40 Lateral Flexion Right 30 ROM Limitations Soft Tissue Tightness Comments Soft tissue restrictions with L rotation, R lateral flexion 02/14/24: B rotation 70 deg, pain free Lumbar Spine Range of Motion Lumbar Spine Active Percentage Flexion 60 Extension 100 Rotation Left 3 Rotation Right 3 Lateral Flexion Left 80 Lateral Flexion Right 100 ROM Limitations Soft Tissue Tightness,Pain Comments Pain reproduced with flexion, extension, R lateral flexion 02/14/24: flexion 75%, pain free PT-OP-L Special Tests Start: 01/11/24 07:25 Freq: Status: Active Protocol: Document 01/11/24 13:00 NM (Rec: 01/11/24 17:29 NM [id number]) Special Tests Lumbar Spine Special Tests Straight Leg Raise Test Results + Comments R Scruggs/Quadrant Test Results + Comments local R>L Distraction Test Results + PT-OP-M Strength Start: 01/11/24 07:25 Freq: Status: Active Protocol: Document 02/14/24 11:17 NM (Rec: 02/14/24 12:02 NM [id number]) Hip Strength Hip Manual Muscle Testing Left Flexion (L2) 4- Good- Extension (S1) 4- Good- Abduction 4- Good- Adduction 4- Good- External Rotation 4 Good Internal Rotation 4 Good Comments 02/14/24: 4/5 for all Right Flexion (L2) 4- Good- Extension (S1) 4- Good- Abduction 4- Good- External Rotation 4 Good Internal Rotation 4 Good Comments 02/14/24: 4/5 for all Knee Strength Knee Manual Muscle Testing Left Flexion (S2) 4- Good- Extension (L3) 4- Good- Comments 02/14/24: 4/5 for all Right Flexion (S2) 4- Good- Extension (L3) 4- Good- Comments 02/14/24: 4/5 for all PT-OP-Q Treatments Start: 01/11/24 07:25 Freq: Status: Active Protocol: Document 03/12/24 09:55 NBM (Rec: 03/12/24 10:37 [facility] [id number]) Therapeutic Exercises Prone Exercises child's pose Prone Exercise Name 1. with shoulder flexion stretch, 2. lateral flexion w/ o foam roller Side bilateral Equipment Used on mat, using foam roller Reps/Minutes 1. 10x5, 2. 1x30 ea Comments cued neutral spine; pain free plank Prone Exercise Name next session Comments pt declines today due to fatigue Standing Exercises wall walks Side bilateral Equipment Used wall Reps/Minutes x8, x3 w/ stretch hold Comments cued scap setting, posture, L> R UT overactivation scaption Side bilateral Resistance Lvl 1 Tb low anchor Reps/Minutes x10 Comments cues for scap setting, UT overactivation serratus anterior Standing Exercise Name serratus roll Side bilateral Resistance AROM Equipment Used foam roller against wall, slight incline of body Reps/Minutes 2x10 Comments cued parallel forearms Rotator cuff theraband Standing Exercise Name 1. wall clocks, 2. banded ER with flexion Side bilateral Resistance lvl 1 tb around forearms Equipment Used 1. at chest height, 2. back against the wall Reps/Minutes 1. 2x5 ea, 2. 2x10 Comments pain free; challenging, 2. cues for form, breathwork pallof press Standing Exercise Name pallof walkout with squat Side bilateral Resistance lvl 1 tb (both hands) Reps/Minutes 2 walkout ea direction w/ 10 presses (squat position) Comments no rotation, pain free, cued breath Other Exercises 1/2 knee rotation Side bilateral Resistance lvl 2 tb Equipment Used mat on floor Reps/Minutes 2x10 ea Comments initial cues for LE alignment and UT overactivation 1/2 kneel hip flexor stretch Side bilateral Equipment Used mat on floor Reps/Minutes 1x60 ea Comments pain free, with ppt self soft tissue mobilization Other Exercise Name UT and LS Side bilateral Equipment Used theracane Reps/Minutes 4 minutes Comments end of session PT-OP-R Modalities Start: 01/11/24 07:25 Freq: Status: Active Protocol: Document 02/27/24 09:44 NBM (Rec: 02/27/24 10:35 [facility] [id number]) Hot Pack/Cold Pack Treatment Cold Pack Location L shoulder Patient Position Hooklying Patient Tolerance Good Comments blanket PT-OP-T Assessment and Plan Start: 01/11/24 07:25 Freq: Status: Active Protocol: Document 03/12/24 09:55 [facility] (Rec: 03/12/24 10:37 [facility] [id number]) Physical Therapy Assessment Goals Five Impairment cervical spine Impairment R rotation 60 deg, L rotation 65 deg Short Term Goal (STG) Pt will increase B cervical spine rotation AROM to at least 70 deg in order to improve visual scanning and posture related to paraspinal muscle length 02/14/24: 70 deg B rotation STG Duration 6 weeks [facility] Jail Goal (LTG) Pt will increase B cervical spine rotation AROM to at least 75 deg in order to improve visual scanning and posture related to paraspinal muscle length 03/05/24: 80 deg R, 85 deg L LTG Duration 12 weeks MET Four Impairment strength Short Term Goal (STG) Pt will increase global BLE strength to at least 4/5 MMT in order to demonstrate improved activity tolerance 02/14/24: BLE 4/5 for all, pain free STG Duration 6 weeks [facility] Goal (LTG) Pt will increase global BLE strength to at least 4+/5 MMT in order to demonstrate improved activity tolerance LTG Duration 12 weeks Three Impairment core stability Impairment plank 14 seconds Short Term Goal (STG) Pt will hold a plank (modified or full) for at least 20 seconds without signs of instability and pain <4/10 in order to demonstrate improved core stability 02/08/24: Pt performed 20s w/ some shoulder pain and with instability. 02/14/24: 20 seconds w/o pain in shoulders, 2 reps STG Duration 6 weeks - MET 02/14/24 Jail Goal (LTG) Pt will hold a plank (modified or full) for at least 30 seconds without signs of instability and pain <4/10 in order to demonstrate improved core stability 02/27/24: plank forearms/toes: 39s w/ signs of stability L shoulder pain /10; bear plank 30 s. 03/05/24: performed at beginning of session, pt able to hold for 30 sec w/o signs of instability and pain free LTG Duration 12 weeks MET Two Impairment activity Impairment not performing HEP or daily exercise Short Term Goal (STG) Pt will report compliance with HEP at least 2-3x/wk in order to maximize progression made during PT sessions 02/14/24: every day STG Duration 6 weeks [facility] Accreditation Coordinator Goal (LTG) Pt will report compliance with HEP at least 3x/wk in order to transition into maintenance program upon discharge from PT 03/05/24: Reports performing HEP daily LTG Duration 12 weeks MET One Impairment activity, function Impairment Oswestry 8/50 Jail Goal (LTG) Pt will decrease Oswestry score to <8/50 in order to demonstrate improvements in activity tolerance, pain management, and QOL 02/14/24: 3/50 LTG Duration 12 weeks MET Assessment Summary Assessment Treatment focus on rotator cuff and serratus strenghtening. Maddie presents fatigued and demonstrates increased UT overactivation today but also increased self- awareness of it and good self- correction. With fatigue pt is increasingly challenged w/ UT overactivation but continues to self-correct. Pain level unchanged 12/01. Discharge next visit. Physical Therapy Plan Frequency and Duration Frequency of Treatment 1-2x/wk Duration of treatment (weeks) 12 Plan of Care Start Date 01/11/24 Plan of Care End Date 04/04/24 Therapeutic Interventions Therapeutic Interventions Balance Training,Gait Training ,Home Exercise Program,Joint Mobilizations,Manual Therapy, Neuromuscular Re-education, Orthotic/Prosthetic Management ,Patient/Caregiver Education, Self-Care/Home Management, Sensory Integration,Soft Tissue Mobilization,Taping, Therapeutic Activities, Therapeutic Exercises Modalities Cold Pack/Ice Massage,Electric Stimulation,Hot Packs, Vasopneumatic Devices Other Therapeutic Interventions No mechanical traction Next Visit Focus/Plan Next Note Type Treatment Note Next Visit Plan Discharge next visit. Next session: Review planks, wall walks, scaption, dolphin plank, serratus roll up, banded rotator cuff with flexion, functional core Plan to d/c in 1 visit Manual: STM, rib mobilizations /trunk mobilizations to open ribs/midthoracic, scapular mechanics, scapular MWM
--- NOTE | 2024-03-19 12:52 | PT.OTN ---
Current Diagnoses Scoliosis, unspecified (03/19/24) Dorsalgia, unspecified (03/19/24) Abnormal posture (03/19/24) Weakness (03/19/24) Physical Therapy Treatment Note PT-OP-A Visit Information Start: 01/11/24 07:25 Freq: Status: Active Protocol: Document 03/19/24 09:50 NM (Rec: 03/19/24 10:28 NM [id number]) Out-Patient Physical Therapy Visit Information Visit Information Visit Type Discharge Summary Visit Note 12 visits Visit Start Time 09:50 Visit Stop Time 10:29 Visit Number 10/02 Evaluation Information Evaluation Date 01/11/24 Precautions Precautions scoliosis PT-OP-B Current Condition Start: 01/11/24 07:25 Freq: Status: Active Protocol: Document 01/11/24 13:00 NM (Rec: 01/11/24 13:48 NM [id number]) Current Condition History of Current Condition Onset Date 1 month ago Current Complaints stiffness, pain History of Current Condition Pt presents with B shoulder (L >R) and back pain (mid- thoracic to lumbar). She believes it's due to sleeping in same position for several days, no other known MAKAYLA. About 1 month ago, pt went to walk in clinic due to pain, which was attributed to scoliosis.She reports that she has multiple curves in spine, hx of wearing back brace but no surgeries. No previous hx of PT or other treatment for scoliosis. 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 Does not participate in any physical activity except walking occasionally Treatment Goals Patient/Caregiver Goals decrease pain PT-OP-C Subjective Start: 01/11/24 07:25 Freq: Status: Active Protocol: Document 03/19/24 09:50 NM (Rec: 03/19/24 10:28 NM [id number]) OP-PT Subjective Patient Comments Patient Comments Pt reports that she is ready for discharge today. States she has been doing well and has not had any pain. Exercises going well. No questions or concerns. PT-OP-E Functional Tests Start: 01/11/24 07:25 Freq: Status: Active Protocol: Document 01/11/24 13:00 NM (Rec: 01/11/24 17:29 NM [id number]) Functional Tests Other Forward Trunk Flexion Test Name of Test measured from finger tips to floor Score 7 PT-OP-F Manual Assessment Start: 01/11/24 07:25 Freq: Status: Active Protocol: Document 01/11/24 13:00 NM (Rec: 01/11/24 17:29 NM [id number]) Manual Assessments Soft Tissue Assessment Soft Tissue Mobility Assessment Increased tone along B paraspinals, rhomboids (L>R), suboccipitals, hip flexors (R> L), hamstrings, and R cervical spine paraspinals Joint Mobility Assessment Joint Mobility Assessment No pain with posterior- anterior springing of spinous processes, hypomobile. Scoliosis with R thoracic curve and L lumbar curve. Anteriorly rotated R ASIS. Observable hypermobility at B elbows and knees. PT-OP-G Mobility & Gait Start: 01/11/24 07:25 Freq: Status: Active Protocol: Document 01/11/24 13:00 NM (Rec: 01/11/24 17:29 NM [id number]) OP Gait Assessment Gait Gait Assistance Required: Independent Distance (Feet) 150 Assistive Devices Assistive Device None Comments Gait Comments Increased trunk stiffness, limited rotation, L limp PT-OP-J Posture/Palpation/Skin Start: 01/11/24 07:25 Freq: Status: Active Protocol: Document 01/11/24 13:00 NM (Rec: 01/11/24 13:48 NM [id number]) Posture Evaluation Position Standing T-Spine Posture Fixed Scoliosis on (R) L-Spine Posture Increased Lordosis,Flexible Scoliosis on (L) Shoulder Posture (L) Rounded,(R) Rounded,(L) Forward,(R) Forward Scapula Posture (R) Protracted,(L) Winged,(R) Winged,(R) Tipped Arm Posture (L) Internally Rotated,(R) Internally Rotated Pelvis Posture (R) Rotated Anterior,(R) Iliac Crest Superior Hip Posture (L) Neutral,(R) Neutral Knee Posture (L) Genu Valgus,(R) Genu Valgus Patellar Posture (L) Superior,(R) Superior Ankle/Foot Posture (L) Pronated,(R) Pronated Comments Posture Comments Measurement from lateral scapular border to spine: L 4 cm, R 7 cm Palpation Assessment Location spine Palpation Findings Soft Tissue Tightness, Tenderness Palpation Details Tenderness near T10 spinous process, but does not increase pain with palpation. Soft tissue tightness of B paraspinals from cervical > lumbar. PT-OP-K Range of Motion Start: 01/11/24 07:25 Freq: Status: Active Protocol: Document 03/19/24 09:50 NM (Rec: 03/19/24 10:28 NM [id number]) Cervical Spine Range of Motion Cervical Spine Active Degrees Testing Position Sitting Flexion 60 Extension 60 Rotation Left 65 Rotation Right 60 Lateral Flexion Left 40 Lateral Flexion Right 30 ROM Limitations Soft Tissue Tightness Comments Soft tissue restrictions with L rotation, R lateral flexion 02/14/24: B rotation 70 deg, pain free 03/19/24: 55 deg flex, 60 deg ext, 25 deg R LF, 45 deg L LF, 75 B rot Lumbar Spine Range of Motion Lumbar Spine Active Percentage Flexion 90 Extension 100 Rotation Left 3 Rotation Right 3 Lateral Flexion Left 100 Lateral Flexion Right 100 ROM Limitations Soft Tissue Tightness,Pain Comments IE: 60 deg flex, 100 deg ext, 3 deg rot B, 8- deg L lateral flex, 100 deg R lateral flex; Pain reproduced with flexion, extension, R lateral flexion 02/14/24: flexion 75%, pain free 03/19/24: 90% flexion, pain free, 100% B lateral flexion PT-OP-L Special Tests Start: 01/11/24 07:25 Freq: Status: Active Protocol: Document 01/11/24 13:00 NM (Rec: 01/11/24 17:29 NM [id number]) Special Tests Lumbar Spine Special Tests Straight Leg Raise Test Results + Comments R Scruggs/Quadrant Test Results + Comments local R>L Distraction Test Results + PT-OP-M Strength Start: 01/11/24 07:25 Freq: Status: Active Protocol: Document 03/19/24 09:50 NM (Rec: 03/19/24 10:28 NM [id number]) Trunk Strength Trunk Manual Muscle Testing Flexion 4 Good Extension 4 Good Rotation Left 4 Good Rotation Right 4 Good Lateral Flexion Left 4 Good Lateral Flexion Right 4 Good Core Stabilization plank: 14 seconds before low back pain and demos instability Comments IE: 3/5 for flex/ext; 4/5 for rotation and lateral flexion. Minimal low back pain with R rotation 03/19/24: 4/5 trunk strength, pain free PT-OP-Q Treatments Start: 01/11/24 07:25 Freq: Status: Active Protocol: Document 03/19/24 09:50 NM (Rec: 03/19/24 10:28 NM [id number]) Therapeutic Exercises Prone Exercises child's pose Prone Exercise Name 1. with shoulder flexion stretch, 2. lateral flexion w/ o foam roller Side bilateral Equipment Used on mat, using foam roller Reps/Minutes 1x60 ea Comments cued neutral spine; pain free plank Prone Exercise Name forearm plank (full plank) Side bilateral Reps/Minutes 2x30 Comments good stability ITWY Prone Exercise Name W and Y: for periscapular strengthening Side bilateral Equipment Used large green sb, mat on floor Comments occ cue for chin tuck, scap retraction to control UT overactivation w/ T&Y. Standing Exercises nurse substance abuse Standing Exercise Name rotator cuff open chain Side bilateral Resistance lvl 1 band Reps/Minutes 2x8 Comments pain free; good control at scap and arms serratus anterior Standing Exercise Name serratus slide Side bilateral Resistance lvl 1 band Reps/Minutes 2x10 Comments cued hand relaxation to prevent shldr tension squats Standing Exercise Name arms across chest: mini squat> chair tap on blue foam Side bilateral Resistance lvl 3 band around thighs Reps/Minutes 3x8 Comments pain free; good initial form but cued for hip hinge w/ fatigue Other Exercises 1/2 knee rotation Side bilateral Resistance lvl 2 tb Equipment Used mat on floor Reps/Minutes 2x10 ea Comments good rotation, pain free PT-OP-R Modalities Start: 01/11/24 07:25 Freq: Status: Active Protocol: Document 02/27/24 09:44 NBM (Rec: 02/27/24 10:35 NBM [id number]) Hot Pack/Cold Pack Treatment Cold Pack Location L shoulder Patient Position Hooklying Patient Tolerance Good Comments blanket PT-OP-T Assessment and Plan Start: 01/11/24 07:25 Freq: Status: Active Protocol: Document 03/19/24 09:50 NM (Rec: 03/19/24 10:28 NM [id number]) Physical Therapy Assessment Goals Five Impairment cervical spine Impairment R rotation 60 deg, L rotation 65 deg Short Term Goal (STG) Pt will increase B cervical spine rotation AROM to at least 70 deg in order to improve visual scanning and posture related to paraspinal muscle length 02/14/24: 70 deg B rotation STG Duration 6 weeks [facility] Correctional Security Officer Goal (LTG) Pt will increase B cervical spine rotation AROM to at least 75 deg in order to improve visual scanning and posture related to paraspinal muscle length 03/05/24: 80 deg R, 85 deg L LTG Duration 12 weeks MET Four Impairment strength Short Term Goal (STG) Pt will increase global BLE strength to at least 4/5 MMT in order to demonstrate improved activity tolerance 02/14/24: BLE 4/5 for all, pain free STG Duration 6 weeks MET Correctional Security Officer Goal (LTG) Pt will increase global BLE strength to at least 4+/5 MMT in order to demonstrate improved activity tolerance LTG Duration 12 weeks Three Impairment core stability Impairment plank 14 seconds Short Term Goal (STG) Pt will hold a plank (modified or full) for at least 20 seconds without signs of instability and pain <4/10 in order to demonstrate improved core stability 02/08/24: Pt performed 20s w/ some shoulder pain and with instability. 02/14/24: 20 seconds w/o pain in shoulders, 2 reps STG Duration 6 weeks - MET 02/14/24 Correctional Security Officer Goal (LTG) Pt will hold a plank (modified or full) for at least 30 seconds without signs of instability and pain <4/10 in order to demonstrate improved core stability 02/27/24: plank forearms/toes: 39s w/ signs of stability L shoulder pain 01/29; bear plank 30 s. 03/05/24: performed at beginning of session, pt able to hold for 30 sec w/o signs of instability and pain free LTG Duration 12 weeks MET Two Impairment activity Impairment not performing HEP or daily exercise Short Term Goal (STG) Pt will report compliance with HEP at least 2-3x/wk in order to maximize progression made during PT sessions 02/14/24: every day STG Duration 6 weeks MET Fdc Goal (LTG) Pt will report compliance with HEP at least 3x/wk in order to transition into maintenance program upon discharge from PT 03/05/24: Reports performing HEP daily LTG Duration 12 weeks MET One Impairment activity, function Impairment Oswestry 8/50 Correctional Security Officer Goal (LTG) Pt will decrease Oswestry score to <8/50 in order to demonstrate improvements in activity tolerance, pain management, and QOL 02/14/24: 3/50 LTG Duration 12 weeks MET Progress Towards Goals Progress Towards Goals Goals Met Progress Comments Improved ROM and strength Assessment Summary Assessment Pt tolerated session well. Emphasis on creating maintenance HEP for pt 3x/wk. Continued with promoting periscapular strength and paraspinal flexibility. Pt continues to demonstrate improved core bracing during forearm plank, no signs of instability. Pt able to progress to open chain rotator cuff/periscapular strengthening with good scapular control and proximal stabilization. She is pain free during session and demonstrates improved tolerance for activity. Physical Therapy Plan Frequency and Duration Frequency of Treatment 1-2x/wk Duration of treatment (weeks) 12 Plan of Care Start Date 01/11/24 Plan of Care End Date 04/04/24 Therapeutic Interventions Therapeutic Interventions Balance Training,Gait Training ,Home Exercise Program,Joint Mobilizations,Manual Therapy, Neuromuscular Re-education, Orthotic/Prosthetic Management ,Patient/Caregiver Education, Self-Care/Home Management, Sensory Integration,Soft Tissue Mobilization,Taping, Therapeutic Activities, Therapeutic Exercises Modalities Cold Pack/Ice Massage,Electric Stimulation,Hot Packs, Vasopneumatic Devices Other Therapeutic Interventions No mechanical traction Discharge Physical Therapy Discharge Reasons Goals Met Discharge Comments All goals met, no further insurance benefits. PT and pt discussed discharge at 03/05 session; pt and PT in agreement Next Visit Focus/Plan Next Visit Plan Discharge from PT
== END 2024-03-20 15:21 | disposition home or self-care (01) ==
LOC: PHYS 09:45
PROVIDERS: Family Provider Family Medicine; PCP Family Medicine; Referring Provider Physician Assistant; Visit Provider Physician Assistant
DX: M54.9 Dorsalgia, unspecified (principal); M41.9 Scoliosis, unspecified; R53.1 Weakness; R29.3 Abnormal posture
CPT/HCPCS: 97110; 97112; 97140; 97161; 97535

== ENCOUNTER → 2025-02-13 14:17 | Outpatient (CLI) | payer OTHER, SELFPAY ==
[2025-02-13 14:49] LABS: Hemoglobin 13.3 g/dL (12.0-16.0); Mean Corpuscular HGB Conc 33.3 % (30-36); Mean Corpuscular Hemoglobin 30.6 PG (26-34); Platelet Count 224 X10^3/uL (150-400); Red Blood Cell Count 4.35 X10^6/uL (4.0-5.2); Red Cell Distribution Width 12.8 % (11.6-14.8)
[2025-02-13 15:02] LABS: Alanine Aminotransferase 23 IU/L (<35); Albumin 4.6 g/dL (3.5-5.0); Albumin Globulin Ratio 1.8 (1.0-2.8); Alkaline Phosphatase 51 U/L (38-126); Aspartate Aminotransferase 27 IU/L (14-36); BUN Creatinine Ratio 26.8 (6-22); Bilirubin Total 0.6 mg/dL (0.2-1.3); Blood Urea Nitrogen 15 mg/dL (7-17); Calcium 9.3 mg/dL (8.4-10.2); Carbon Dioxide 25 mmol/L (22-32); Chloride 101 mmol/L (98-107); Cholesterol 182 mg/dL (140-199); Estimated Glomerular Filt Rate > 60 mL/min (>60); Globulin 2.6 g/dL (1.7-4.1); Glucose 90 mg/dL (70-99); HDL Cholesterol 84 mg/dL (40-60); HEMOLYSIS < 15 (0-50); LDL Cholesterol Calculated 86 mg/dL (<100); Potassium 3.7 mmol/L (3.4-5.1); Sodium 138 mmol/L (137-145); Total Protein 7.2 g/dL (6.3-8.2); Triglycerides 59 mg/dL (35-150)
== END ==
LOC: LAB 14:18
PROVIDERS: Family Provider Family Medicine; PCP Family Medicine; Referring Provider Family Medicine; Visit Provider Family Medicine
DX: Z13.220 Encounter for screening for lipoid disorders (principal); R63.6 Underweight; F32.A Depression, unspecified; Z68.1 Body mass index [BMI] 19.9 or less, adult
CPT/HCPCS: 36415; 80053; 80061; 85027